=== PATIENT | female | born 1985 | race Hispanic/Latino ===

== ENCOUNTER 2018-01-20 18:04 | Emergency (ER) | payer SELFPAY ==
[2018-01-20 19:02] VITALS: BP 110/77
[2018-01-20 19:16] LABS: Basophils # (Auto) 0.1 K/mm3 (0.0-0.1); Basophils % (Auto) 0.5 % (0.0-1.8); Eosinophils # (Auto) 0.2 K/mm3 (0.0-0.4); Eosinophils % (Auto) 1.7 % (0.0-4.3); Hematocrit 40.4 % (30.3-42.9); Hemoglobin 13.6 gm/dl (10.1-14.3); Lymphocytes # (Auto) 1.8 K/mm3 (1.2-5.4); Lymphocytes % (Auto) 15.9 % (13.4-35.0); Mean Corpuscular HGB Conc 34 % (30-34); Mean Corpuscular Hemoglobin 31 pg (28-32); Mean Corpuscular Volume 92 fl (79-97); Monocytes # (Auto) 0.9 K/mm3 (0.0-0.8); Platelet Count 222 K/mm3 (140-440); Red Cell Distribution Width 14.3 % (13.2-15.2)
[2018-01-20 19:38] LABS: Alanine Aminotransferase 8 units/L (7-56); Albumin 4.2 g/dL (3.9-5); BUN/Creatinine Ratio 14; Blood Urea Nitrogen 10 mg/dL (7-17); Calcium 9.5 mg/dL (8.4-10.2); Hemolysis Index 4
[2018-01-20 19:42] LABS: Bacteria,Urine 2+ /HPF (Negative); Bilirubin,Urine NEG (Negative); Blood,Urine SM (Negative); Color,Urine Yellow (Yellow); Mucus,Urine FEW /HPF; Urobilinogen,Urine < 2.0 mg/dL (<2.0)
[2018-01-20 19:44] LABS: HCG Qualitative,Urine Negative (Negative)
== END 2018-01-20 19:58 | disposition left against medical advice (07) ==
LOC: ED 18:04
DX: M54.5 Low back pain (principal); Z53.21 Procedure and treatment not carried out due to patient leaving prior to being seen by health care provider
CPT/HCPCS: 36415; 80053; 81001; 81025; 85025; 87086

== ENCOUNTER 2018-09-16 14:27 | Emergency (ER) | payer OTHER ==
--- NOTE | 2018-09-16 14:58 | Emergency Department Report ---
Chief Complaint: Abdominal Pain Stated Complaint: ABD PAIN/BACK PAIN/FATIGUE Time Seen by Provider: 09/16/18 14:55 - HPI History of Present Illness: This is a 32 y.o. female that presents to ER with abdominal pain, chills, fatigue, and vomiting x 2 days. - ROS Review of Systems: pelvic pain - Exam Vital Signs: Vital Signs 09/16/18 14:56 Temperature 99.1 F Pulse Rate 89 Respiratory 20 Rate Blood Pressure 116/77 O2 Sat by Pulse 96 Oximetry MSE screening note: Focused history and physical exam performed. Due to findings the following was ordered: Labs Fast track for further evaluation ED Disposition for MSE Condition: Stable Instructions: Abdominal Pain (ED)
[2018-09-16 15:29] LABS: Bacteria,Urine 1+ /HPF (Negative); Bilirubin,Urine NEG (Negative); Blood,Urine SM (Negative); Color,Urine Amber (Yellow); Mucus,Urine FEW /HPF
[2018-09-16 15:30] LABS: Basophils # (Auto) 0.1 K/mm3 (0.0-0.1); Basophils % (Auto) 0.6 % (0.0-1.8); Eosinophils # (Auto) 0.1 K/mm3 (0.0-0.4); Eosinophils % (Auto) 0.5 % (0.0-4.3); Hematocrit 40.6 % (30.3-42.9); Hemoglobin 13.8 gm/dl (10.1-14.3); Lymphocytes # (Auto) 1.7 K/mm3 (1.2-5.4); Lymphocytes % (Auto) 10.6 % (13.4-35.0); Mean Corpuscular HGB Conc 34 % (30-34); Mean Corpuscular Volume 92 fl (79-97); Monocytes # (Auto) 1.1 K/mm3 (0.0-0.8); Monocytes % (Auto) 7.1 % (0.0-7.3); Platelet Count 293 K/mm3 (140-440); Red Cell Distribution Width 13.8 % (13.2-15.2)
[2018-09-16 15:33] LABS: Protein,Urine >500 mg/dL (Negative)
[2018-09-16 16:02] LABS: Alanine Aminotransferase 12 units/L (7-56); Albumin 4.4 g/dL (3.9-5); BUN/Creatinine Ratio 11; Blood Urea Nitrogen 8 mg/dL (7-17); Calcium 9.1 mg/dL (8.4-10.2); Hemolysis Index 3
--- NOTE | 2018-09-16 16:31 | Emergency Department Report ---
ED Dysuria HPI - HPI Chief Complaint: Abdominal Pain Stated Complaint: ABD PAIN/BACK PAIN/FATIGUE Time Seen by Provider: 09/16/18 14:55 Duration: 3 Days Location of Discomfort: Suprapubic Severity: Mild Symptoms: Dysuria: Yes, Frequency: No, Suprapubic Pain: No, Flank Pain: No, Fever: No, Hematuria: No, Abdominal Pain: No, Previous UTI's: No Other History: Patient is a 32-year-old female that comes to the emergency room complaining of lower abdominal pain that worsened during intercourse. She has 2 sexual partners. She vomited once since Saturday. Patient reports that she has dark brown vaginal discharge. Patient's last menstrual period was 09/07/2018. Patient denies fever. Patient endorses chills. She is ambulatory without difficulty. rx. none. pmh. none ED Review of Systems ROS: Stated complaint: ABD PAIN/BACK PAIN/FATIGUE Other details as noted in HPI Comment: All other systems reviewed and negative Constitutional: see HPI, chills Eyes: denies: eye pain ENT: denies: ear pain Respiratory: denies: cough Cardiovascular: denies: chest pain Endocrine: denies: flushing Gastrointestinal: as per HPI, abdominal pain, vomiting. denies: nausea, diarrhea, constipation Genitourinary: as per HPI, dysuria, hematuria, discharge, abnormal menses. denies: urgency, frequency Musculoskeletal: denies: as per HPI, back pain Skin: denies: rash Neurological: denies: headache Psychiatric: denies: anxiety Hematological/Lymphatic: denies: easy bleeding ED Past Medical Hx - Past Medical History Previous Medical History?: No Hx Hypertension: No Hx Diabetes: No Hx Deep Vein Thrombosis: No Hx Renal Disease: No Hx Sickle Cell Disease: No Hx Seizures: No Hx Asthma: No Hx HIV: No - Surgical History Past Surgical History?: Yes Additional Surgical History: 2013, 2012, 2007 - Family History Family history: no significant - Social History Smoking Status: Current Every Day Smoker Substance Use Type: Alcohol - Medications Home Medications: Home Medications Medication Instructions Recorded Confirmed Last Taken Type Fluconazole [Diflucan TAB] 100 mg PO QDAY #2 tablet 09/16/18 Unknown Rx metroNIDAZOLE [Flagyl] 500 mg PO Q12HR #20 tab 09/16/18 Unknown Rx Dysuria Exam - Exam General: Vital signs noted. No distress. Alert and acting appropriately. Exam: Yes Moist Mucous Membranes, No CVA Tenderness, No Abdominal Tenderness, No Rigidity or Guarding Labs: Lab Results 09/16/18 09/16/18 09/16/18 Range/Units 15:08 15:19 15:19 WBC 16.0 H (4.5-11.0) K/mm3 RBC 4.40 (3.65-5.03) M/mm3 Hgb 13.8 (10.1-14.3) gm/dl Hct 40.6 (30.3-42.9) % MCV 92 (79-97) fl MCH 31 (28-32) pg MCHC 34 (30-34) % RDW 13.8 (13.2-15.2) % Plt Count 293 (140-440) K/mm3 Lymph % (Auto) 10.6 L (13.4-35.0) % Martin % (Auto) 7.1 (0.0-7.3) % Eos % (Auto) 0.5 (0.0-4.3) % Baso % (Auto) 0.6 (0.0-1.8) % Lymph # 1.7 (1.2-5.4) K/mm3 Martin # 1.1 H (0.0-0.8) K/mm3 Eos # 0.1 (0.0-0.4) K/mm3 Baso # 0.1 (0.0-0.1) K/mm3 Seg Neutrophils % 81.2 H (40.0-70.0) % Seg Neutrophils # 13.0 H (1.8-7.7) K/mm3 Sodium 136 L (137-145) mmol/L Potassium 4.0 (3.6-5.0) mmol/L Chloride 96.0 L (98-107) mmol/L Carbon Dioxide 28 (22-30) mmol/L Anion Gap 16 mmol/L BUN 8 (7-17) mg/dL Creatinine 0.7 (0.7-1.2) mg/dL Estimated GFR > 60 ml/min BUN/Creatinine Ratio 11 % Glucose 97 (65-100) mg/dL Calcium 9.1 (8.4-10.2) mg/dL Total Bilirubin 1.10 (0.1-1.2) mg/dL AST 18 (5-40) units/L ALT 12 (7-56) units/L Alkaline Phosphatase 57 (35-129) units/L Total Protein 8.0 (6.3-8.2) g/dL Albumin 4.4 (3.9-5) g/dL Albumin/Globulin Ratio 1.2 % HCG, Qual (Negative) Urine Color Angela (Yellow) Urine Turbidity Slightly-cloudy (Clear) Urine pH 8.0 H (5.0-7.0) Ur Specific [place] 1.031 H (1.003-1.030) Urine Protein >500 (Negative) mg/dL Urine Glucose (UA) Neg (Negative) mg/dL Urine Ketones Neg (Negative) mg/dL Urine Blood Sm (Negative) Urine Nitrite Neg (Negative) Urine Bilirubin Neg (Negative) Urine Urobilinogen 4.0 (<2.0) mg/dL Ur Leukocyte Esterase Lg (Negative) Urine WBC (Auto) 71.0 H (0.0-6.0) /HPF Urine RBC (Auto) 31.0 (0.0-6.0) /HPF U Epithel Cells (Auto) 15.0 H (0-13.0) /HPF Urine Bacteria (Auto) 1+ (Negative) /HPF Urine Mucus Few /HPF 03// Range/Units 15:19 WBC (4.5-11.0) K/mm3 RBC (3.65-5.03) M/mm3 Hgb (10.1-14.3) gm/dl Hct (30.3-42.9) % MCV (79-97) fl MCH (28-32) pg MCHC (30-34) % RDW (13.2-15.2) % Plt Count (140-440) K/mm3 Lymph % (Auto) (13.4-35.0) % Martin % (Auto) (0.0-7.3) % Eos % (Auto) (0.0-4.3) % Baso % (Auto) (0.0-1.8) % Lymph # (1.2-5.4) K/mm3 Martin # (0.0-0.8) K/mm3 Eos # (0.0-0.4) K/mm3 Baso # (0.0-0.1) K/mm3 Seg Neutrophils % (40.0-70.0) % Seg Neutrophils # (1.8-7.7) K/mm3 Sodium (137-145) mmol/L Potassium (3.6-5.0) mmol/L Chloride (98-107) mmol/L Carbon Dioxide (22-30) mmol/L Anion Gap mmol/L BUN (7-17) mg/dL Creatinine (0.7-1.2) mg/dL Estimated GFR ml/min BUN/Creatinine Ratio % Glucose (65-100) mg/dL Calcium (8.4-10.2) mg/dL Total Bilirubin (0.1-1.2) mg/dL AST (5-40) units/L ALT (7-56) units/L Alkaline Phosphatase (35-129) units/L Total Protein (6.3-8.2) g/dL Albumin (3.9-5) g/dL Albumin/Globulin Ratio % HCG, Qual Negative (Negative) Urine Color (Yellow) Urine Turbidity (Clear) Urine pH (5.0-7.0) Ur Specific [place] (1.003-1.030) Urine Protein (Negative) mg/dL Urine Glucose (UA) (Negative) mg/dL Urine Ketones (Negative) mg/dL Urine Blood (Negative) Urine Nitrite (Negative) Urine Bilirubin (Negative) Urine Urobilinogen (<2.0) mg/dL Ur Leukocyte Esterase (Negative) Urine WBC (Auto) (0.0-6.0) /HPF Urine RBC (Auto) (0.0-6.0) /HPF U Epithel Cells (Auto) (0-13.0) /HPF Urine Bacteria (Auto) (Negative) /HPF Urine Mucus /HPF ED Course Vital Signs 09/16/18 14:56 Temperature 99.1 F Pulse Rate 89 Respiratory 20 Rate Blood Pressure 116/77 O2 Sat by Pulse 96 Oximetry ED Medical Decision Making - Lab Data Result diagrams: 09/16/18 15:19 09/16/18 15:19 - Medical Decision Making Labs 09/16/18 09/16/18 09/16/18 15:08 15: 15:19 WBC 16.0 H RBC 4.40 Hgb 13.8 Hct 40.6 MCV 92 MCH 31 MCHC 34 RDW 13.8 Plt Count 293 Lymph % (Auto) 10.6 L Martin % (Auto) 7.1 Eos % (Auto) 0.5 Baso % (Auto) 0.6 Lymph # 1.7 Martin # 1.1 H Eos # 0.1 Baso # 0.1 Seg Neutrophils % 81.2 H Seg Neutrophils # 13.0 H Sodium 136 L Potassium 4.0 Chloride 96.0 L Carbon Dioxide 28 Anion Gap 16 BUN 8 Creatinine 0.7 Estimated GFR > 60 BUN/Creatinine Ratio 11 Glucose 97 Calcium 9.1 Total Bilirubin 1.10 AST 18 ALT 12 Alkaline Phosphatase 57 Total Protein 8.0 Albumin 4.4 Albumin/Globulin Ratio 1.2 HCG, Qual Urine Color Angela Urine Turbidity Slightly-cloudy Urine pH 8.0 H Ur Specific [place] 1.031 H Urine Protein >500 Urine Glucose (UA) Neg Urine Ketones Neg Urine Blood Sm Urine Nitrite Neg Urine Bilirubin Neg Urine Urobilinogen 4.0 Ur Leukocyte Esterase Lg Urine WBC (Auto) 71.0 H Urine RBC (Auto) 31.0 U Epithel Cells (Auto) 15.0 H Urine Bacteria (Auto) 1+ Urine Mucus Few 09/16/18 15:19 WBC RBC Hgb Hct MCV MCH MCHC RDW Plt Count Lymph % (Auto) Martin % (Auto) Eos % (Auto) Baso % (Auto) Lymph # Martin # Eos # Baso # Seg Neutrophils % Seg Neutrophils # Sodium Potassium Chloride Carbon Dioxide Anion Gap BUN Creatinine Estimated GFR BUN/Creatinine Ratio Glucose Calcium Total Bilirubin AST ALT Alkaline Phosphatase Total Protein Albumin Albumin/Globulin Ratio HCG, Qual Negative Urine Color Urine Turbidity Urine pH Ur Specific [place] Urine Protein Urine Glucose (UA) Urine Ketones Urine Blood Urine Nitrite Urine Bilirubin Urine Urobilinogen Ur Leukocyte Esterase Urine WBC (Auto) Urine RBC (Auto) U Epithel Cells (Auto) Urine Bacteria (Auto) Urine Mucus Vital Signs 09/16/18 14:56 Temperature 99.1 F Pulse Rate 89 Respiratory 20 Rate Blood Pressure 116/77 O2 Sat by Pulse 96 Oximetry wet prep noted will treat with azithro pt is allergic to keflex- will not give rocephin, need to call her back should gonn. culture be positive will dc home on flagyl and diflucan Critical care attestation.: If time is entered above; I have spent that time in minutes in the direct care of this critically ill patient, excluding procedure time. ED Disposition Clinical Impression: Bacterial vaginosis Disposition: DC-01 TO HOME OR SELFCARE Is pt being admited?: No Does the pt Need Aspirin: No Condition: Stable Instructions: Bacterial Vaginosis (ED) Additional Instructions: MED ORDERED today safe sex HYDRATE WELL WITH WATER MOTRIN OR TYLENOL FOR PAIN OR FEVER DIET TOLERATED ACTIVITY TOLERATED FOLLOW UP obgyn to be sure you are getting better referral below you have additional cultures pending here in ER make sure we have the proper phone number Referrals: JIMMY SCHERERFRISCO MD TROY [Primary Care Provider] - 3-5 Days HANY PAZ MD [Staff Physician] - 3-5 Days Forms: STI Treatment and Prevention Time of Disposition: 17:19
[2018-09-16] MEDS ORDERED: PERCOCET 5/325 PO PRN (16:40)
[2018-09-16] MEDS ORDERED: NACL 0.9% 1000 ML 1,000 ML IV ONE (16:40)
[2018-09-16] MEDS ORDERED: ZITHROMAX PO ONE (17:13)
[2018-09-16 18:36] VITALS: BP 115/67
== END 2018-09-16 18:29 | disposition home or self-care (01) ==
LOC: ED 14:27
DX: N76.0 Acute vaginitis (principal); B96.89 Other specified bacterial agents as the cause of diseases classified elsewhere; F17.200 Nicotine dependence, unspecified, uncomplicated; Z88.8 Allergy status to other drugs, medicaments and biological substances
CPT/HCPCS: 36415; 80053; 81001; 84703; 85025; 87210; 87591; 96360; 99284; J7030

== ENCOUNTER 2019-02-05 12:12 | Emergency (ER) | payer SELFPAY ==
--- NOTE | 2019-02-05 12:19 | Emergency Department Report ---
Blank Doc - Documentation Documentation: This is a 33-year-old female that presents with dysuria and vaginal discharge. Also has toothache. This initial assessment/diagnostic orders/clinical plan/treatment(s) is/are subject to change based on patient's health status, clinical progression and re- assessment by fellow clinical providers in the ED. Further treatment and workup at subsequent clinical providers discretion. Patient/guardians urged not to elope from the ED as their condition may be serious if not clinically assessed and managed. Initial orders include: 1- Patient sent to [facility] for further evaluation and treatment 2- UA 3- wet prep/GC
--- NOTE | 2019-02-05 14:10 | Emergency Department Report ---
ED General Adult HPI - General Chief complaint: Dental/Oral Stated complaint: TOOTHACHE/POSS UTI Time Seen by Provider: 02/05/19 12:18 Source: patient Mode of arrival: Ambulatory Limitations: No Limitations - History of Present Illness Initial comments: This is a 33-year-old female presents ED complaining of right-sided lower dental pain for the past 2 weeks. Patient states that she has not been to see a dentist for some time now. Patient states pain is localized to the left lower tendon toe region. Patient states that pain is radiated toward his left ear. Patient denies any trauma falls or injuries. Patient also complains of experiencing urinary frequency and urgency. Patient states she thinks she may have a UTI. She left pain, fever, nausea vomiting - Related Data Previous Rx's Medication Instructions Recorded Last Taken Type Fluconazole [Diflucan TAB] 100 mg PO QDAY #2 tablet 09/16/18 Unknown Rx metroNIDAZOLE [Flagyl] 500 mg PO Q12HR #20 tab 09/16/18 Unknown Rx Clindamycin [Clindamycin CAP] 300 mg PO Q8H #21 cap 02/05/19 Unknown Rx Ibuprofen [Motrin] 800 mg PO Q8HR #30 tablet 02/05/19 Unknown Rx Allergies Allergy/AdvReac Type Severity Reaction Status Date / Time cephalexin monohydrate AdvReac Intermediate Hives Verified 02/05/19 12:15 [From Keflex] ED Review of Systems ROS: Stated complaint: TOOTHACHE/POSS UTI Other details as noted in HPI Comment: All other systems reviewed and negative ED Past Medical Hx - Past Medical History Hx Hypertension: No Hx Diabetes: No Hx Deep Vein Thrombosis: No Hx Renal Disease: No Hx Sickle Cell Disease: No Hx Seizures: No Hx Asthma: No Hx HIV: No - Surgical History Additional Surgical History: 2013, 2012, 2007 - Social History Smoking Status: Current Every Day Smoker Substance Use Type: None - Medications Home Medications: Home Medications Medication Instructions Recorded Confirmed Last Taken Type Fluconazole [Diflucan TAB] 100 mg PO QDAY #2 tablet 09/16/18 Unknown Rx metroNIDAZOLE [Flagyl] 500 mg PO Q12HR #20 tab 09/16/18 Unknown Rx Clindamycin [Clindamycin CAP] 300 mg PO Q8H #21 cap 02/05/19 Unknown Rx Ibuprofen [Motrin] 800 mg PO Q8HR #30 tablet 02/05/19 Unknown Rx ED Physical Exam - General Limitations: No Limitations General appearance: alert, in no apparent distress - Head Head exam: Present: atraumatic, normocephalic - Eye Eye exam: Present: normal appearance - ENT ENT exam: Present: mucous membranes moist - Expanded ENT Exam Expanded Mouth exam: Present: normal external inspection Teeth exam: Present: dental caries (29), dental tenderness # (29). Absent: gingival enlargement Throat exam: Positive: normal inspection. Negative: tonsillar erythema, tonsillar exudate - Neck Neck exam: Present: normal inspection - Respiratory Respiratory exam: Present: normal lung sounds bilaterally. Absent: respiratory distress - Cardiovascular Cardiovascular Exam: Present: regular rate, normal rhythm. Absent: systolic murmur, diastolic murmur, rubs, gallop - GI/Abdominal GI/Abdominal exam: Present: soft, normal bowel sounds - Extremities Exam Extremities exam: Present: normal inspection, full ROM - Back Exam Back exam: Present: normal inspection - Neurological Exam Neurological exam: Present: alert, oriented X3 - Psychiatric Psychiatric exam: Present: normal affect, normal mood - Skin Skin exam: Present: warm, dry, intact, normal color. Absent: rash ED Course Vital Signs 02/05/19 02/05/19 12:18 16:28 Temperature 98.0 F 98.2 F Pulse Rate 91 H 80 Respiratory 16 15 Rate Blood Pressure 149/89 Blood Pressure 135/77 [Left] O2 Sat by Pulse 96 98 Oximetry ED Medical Decision Making - Medical Decision Making 33-year-old female who presents with right lower Facial pain secondary to odontogenic caries ED course: Odontogenic infection versus ear infection. Based upon history and physical examination, pain is a result of an infection of tooth number 29 and that the pain Pt feels on the right side of his face and towards the ear is referred pain from this infectious process. Pt has no evidence of acute impending airway compromise. At this point, patient will be discharged home on some antibiotics and pain trial, she will do well with an outpatient course of antibiotics. Follow up with the Dental Clinic as referred Vital signs are normal patient is in no acute distress. Pt had an effect uneventful ED stay Urinalysis completed urinalysis shows signs of mild cystitis. Patient was sensitive on antibiotics which will cover the UTI. Critical care attestation.: If time is entered above; I have spent that time in minutes in the direct care of this critically ill patient, excluding procedure time. ED Disposition Clinical Impression: Pain due to dental caries Disposition: DC TO HOME OR SELFCARE Is pt being admited?: No Does the pt Need Aspirin: No Condition: Stable Instructions: Dental Caries (ED), Toothache (ED) Additional Instructions: Make sure to follow up with the primary care physician as discussed. Take all your medications as you've been prescribed. If you have any worsening symptoms or develop new symptoms please return to ED immediately. Prescriptions: Clindamycin [Clindamycin CAP] 300 mg PO Q8H #21 cap Ibuprofen [Motrin] 800 mg PO Q8HR #30 tablet Referrals: CONNIE CUI MD [Primary Care Provider] - 3-5 Days [facility] [Outside] - 3-5 Days [facility] [Outside] - 3-5 Days [facility] [Outside] - 3-[address] [facility] [Outside] - 3-5 Days Forms: Work/School Release Form(ED) Time of Disposition: 14:13
[2019-02-05 14:30] LABS: Bilirubin,Urine NEG (Negative); Blood,Urine SM (Negative); Color,Urine Yellow (Yellow); Mucus,Urine 2+ /HPF; Urobilinogen,Urine < 2.0 mg/dL (<2.0)
[2019-02-05 14:32] LABS: HCG Qualitative,Urine Negative (Negative)
[2019-02-05 16:29] VITALS: BP 135/77
== END 2019-02-05 15:00 | disposition home or self-care (01) ==
LOC: ED 12:12
DX: K02.9 Dental caries, unspecified (principal); F17.200 Nicotine dependence, unspecified, uncomplicated; Z88.8 Allergy status to other drugs, medicaments and biological substances; Z79.1 Long term (current) use of non-steroidal anti-inflammatories (NSAID)
CPT/HCPCS: 81001; 81025; 87076; 87086; 87186; 99284

== ENCOUNTER 2019-08-25 15:35 | Emergency (ER) | payer SELFPAY ==
[2019-08-25 19:11] VITALS: BP 106/69
[2019-08-25 20:49] LABS: Bilirubin,Urine NEG (Negative); Blood,Urine LG (Negative); Color,Urine Red (Yellow); HCG Qualitative,Urine Negative (Negative); Mucus,Urine 1+ /HPF; Urobilinogen,Urine < 2.0 mg/dL (<2.0)
[2019-08-25 20:50] LABS: RBC,Urine > 182.0 /HPF (0.0-6.0); WBC,Urine > 182.0 /HPF (0.0-6.0)
[2019-08-25] MEDS ORDERED: KETOROLAC 30 MG/1 ML INJ IV ONE (22:47)
[2019-08-25] MEDS ORDERED: SODIUM CHLORIDE 0.9% 1000 ML 1,000 ML IV ONE (22:47)
--- NOTE | 2019-08-25 22:56 | Emergency Department Report ---
ED Abdominal Pain HPI - General Chief Complaint: Urogenital-Female Stated Complaint: LOWER BACK PAIN, CHILLS Time Seen by Provider: 08/25/19 22:03 Source: patient Mode of arrival: Ambulatory Limitations: No Limitations - History of Present Illness Initial Comments: Ms. Hopson is a 33-year-old white female who presents for right flank pain radiating to suprapubic. Symptoms have been for the last week. Symptoms include dysuria frequency and urgency. Patient denies hematuria however there is flank pain that is increased with urination. She does endorse generalized malaise. No fever noted in triage today. There is mild tachycardia. Symptoms are relieved by nothing tried. Patient denies vaginal discharge states no concern for STI. MD Complaint: flank pain Onset/Timin -: week(s) Location: R flank Radiation: suprapubic Migration to: suprapubic Severity: moderate Severity scale (0 -10): 5 Quality: aching, sharp Consistency: constant Improves With: nothing Worsens With: nothing Associated Symptoms: nausea, chills, dysuria. denies: vomiting, diarrhea, fever, constipation, melena - Related Data LMP Date: 08/17/19 Previous Rx's Medication Instructions Recorded Last Taken Type Fluconazole [Diflucan TAB] 100 mg PO QDAY #2 tablet 09/16/18 Unknown Rx metroNIDAZOLE [Flagyl] 500 mg PO Q12HR #20 tab 09/16/18 Unknown Rx Clindamycin [Clindamycin CAP] 300 mg PO Q8H #21 cap 02/05/19 Unknown Rx Ibuprofen [Motrin] 800 mg PO Q8HR #30 tablet 02/05/19 Unknown Rx Ciprofloxacin HCl [Ciprofloxacin 500 mg PO BID 10 Days #20 tab 08/26/19 Unknown Rx TAB] Ibuprofen [Motrin 800 MG tab] 800 mg PO Q8HR PRN #30 tablet 08/26/19 Unknown Rx Allergies Allergy/AdvReac Type Severity Reaction Status Date / Time cephalexin monohydrate AdvReac Intermediate Hives Verified 02/05/19 12:15 [From Keflex] ED Review of Systems ROS: Stated complaint: LOWER BACK PAIN, CHILLS Other details as noted in HPI Constitutional: denies: chills, fever Eyes: denies: eye pain, eye discharge, vision change ENT: denies: ear pain, throat pain Respiratory: no symptoms reported Cardiovascular: denies: chest pain, palpitations Endocrine: no symptoms reported Gastrointestinal: abdominal pain, nausea, vomiting. denies: diarrhea, constipation, melena Genitourinary: as per HPI, urgency, dysuria, frequency. denies: hematuria, discharge, dyspareunia Musculoskeletal: back pain (left flank). denies: joint swelling, arthralgia Skin: denies: rash, lesions Neurological: denies: headache, weakness, paresthesias Psychiatric: denies: anxiety, depression Hematological/Lymphatic: denies: easy bleeding, easy bruising ED Past Medical Hx - Past Medical History Previous Medical History?: No Hx Hypertension: No Hx Diabetes: No Hx Deep Vein Thrombosis: No Hx Renal Disease: No Hx Sickle Cell Disease: No Hx Seizures: No Hx Asthma: No Hx HIV: No - Surgical History Past Surgical History?: Yes Additional Surgical History: 2013, 2012, 2007 - Social History Smoking Status: Current Every Day Smoker Substance Use Type: None - Medications Home Medications: Home Medications Medication Instructions Recorded Confirmed Last Taken Type Fluconazole [Diflucan TAB] 100 mg PO QDAY #2 tablet 09/16/18 Unknown Rx metroNIDAZOLE [Flagyl] 500 mg PO Q12HR #20 tab 09/16/18 Unknown Rx Clindamycin [Clindamycin CAP] 300 mg PO Q8H #21 cap 02/05/19 Unknown Rx Ibuprofen [Motrin] 800 mg PO Q8HR #30 tablet 02/05/19 Unknown Rx Ciprofloxacin HCl [Ciprofloxacin 500 mg PO BID 10 Days #20 tab 08/26/19 Unknown Rx TAB] Ibuprofen [Motrin 800 MG tab] 800 mg PO Q8HR PRN #30 tablet 08/26/19 Unknown Rx ED Physical Exam - General Limitations: No Limitations General appearance: alert, in no apparent distress - Head Head exam: Present: atraumatic, normocephalic - Eye Eye exam: Present: normal appearance, PERRL Pupils: Present: normal accommodation - ENT ENT exam: Present: mucous membranes moist - Neck Neck exam: Present: normal inspection, full ROM. Absent: tenderness - Respiratory Respiratory exam: Present: normal lung sounds bilaterally. Absent: respiratory distress, wheezes, stridor, chest wall tenderness - Cardiovascular Cardiovascular Exam: Present: regular rate, normal rhythm, normal heart sounds. Absent: systolic murmur, diastolic murmur, rubs, gallop - GI/Abdominal GI/Abdominal exam: Present: soft, tenderness (right flank ), normal bowel sounds. Absent: distended, guarding, rebound, rigid, bruit, hernia - Rectal Rectal exam: Present: deferred - Extremities Exam Extremities exam: Present: normal inspection, full ROM. Absent: tenderness - Back Exam Back exam: Present: normal inspection, full ROM, CVA tenderness (L). Absent: tenderness, CVA tenderness (R), vertebral tenderness, rash noted - Neurological Exam Neurological exam: Present: alert, oriented X3, CN II-XII intact, normal gait, reflexes normal. Absent: motor sensory deficit - Psychiatric Psychiatric exam: Present: normal affect, normal mood - Skin Skin exam: Present: warm, dry, intact, normal color. Absent: rash ED Course Vital Signs 08/25/19 19:09 Temperature 98.7 F Pulse Rate 103 H Respiratory 18 Rate Blood Pressure 106/69 O2 Sat by Pulse 95 Oximetry ED Medical Decision Making - Lab Data Labs 08/25/19 Unknown Urine Color Red Urine Turbidity Turbid Urine pH 6.0 Ur Specific [place] 1.021 Urine Protein 100 mg/dl Urine Glucose (UA) Neg Urine Ketones Tr Urine Blood Lg Urine Nitrite Neg Urine Bilirubin Neg Urine Ictotest Not Reportable Urine Urobilinogen < 2.0 Ur Leukocyte Esterase Mod Urine WBC (Auto) > 182.0 H Urine RBC (Auto) > 182.0 U Epithel Cells (Auto) 5.0 Urine WBC Clumps 3+ Urine Mucus 1+ Urine HCG, Qual Negative - Radiology Data Radiology results: report reviewed, image reviewed Findings Reporting MD: Kj Hollis Dictation Time: August 25, 2019 22:24 Drafter Detail: Not available Powder Guard Date: CT ABDOMEN AND PELVIS WITHOUT IV CONTRAST INDICATION: flank pain. COMPARISON: None available. TECHNIQUE: All CT scans at this facility use dose modulation, automated exposure control, iterative reconstruction or weight based dosing, when appropriate, to reduce radiation dose to as low as reasonably achievable. FINDINGS: Lung Bases: No significant abnormality. Skeletal System: No acute abnormality. ABDOMEN: Liver: No significant abnormality. Gallbladder: There are couple punctate gallstones. The gallbladder is otherwise unremarkable. Bile Ducts: No significant abnormality. Pancreas: No significant abnormality. Spleen: No significant abnormality. Adrenals: No significant abnormality. Right Kidney: No significant abnormality. Left Kidney: There is subtle asymmetric left perinephric stranding. Upper GI tract: Small hiatal hernia. Otherwise unremarkable. Lymph Nodes: No significant adenopathy. Aorta: No significant abnormality. Additional Findings: No significant abnormality. PELVIS: Colon: No acute abnormality. Urinary Bladder and Distal Ureters: There is mild perivesical stranding. Appendix: No significant abnormality. Lymph Nodes: No significant adenopathy. Additional Findings: Trace free fluid may be physiologic. IMPRESSION: 1. Probable cystitis. Mild asymmetric left perinephric stranding is concerning for left pyelonephritis. No hydronephrosis. 2. Incidental findings, as above. - Medical Decision Making CT scan scan consistent with pyelonephritis left. Patient treated with Rocephin IV piggyback in ED and Toradol states that symptoms are improved to 2/10 at this point she is tolerating p.o. intake without nausea or vomiting there is no fever chills patient with no acute distress. Patient will be DC'd home in stable condition with prescription for Cipro ibuprofen. She will continue to hydrate and follow-up with PCP in 2 to 3 days. Patient verbalizes agreement and understanding with discharge plan. Patient DC'd home in stable condition at this time. Critical care attestation.: If time is entered above; I have spent that time in minutes in the direct care of this critically ill patient, excluding procedure time. ED Disposition Clinical Impression: UTI (urinary tract infection) Qualifiers: Urinary tract infection type: acute cystitis Hematuria presence: without hematuria Qualified Code(s): N30.00 - Acute cystitis without hematuria Disposition: DC-01 TO HOME OR SELFCARE Is pt being admited?: No Does the pt Need Aspirin: No Condition: Stable Instructions: Urinary Tract Infection in Women (ED), Flank Pain (ED) Prescriptions: Ciprofloxacin HCl [Ciprofloxacin TAB] 500 mg PO BID 10 Days #20 tab Ibuprofen [Motrin 800 MG tab] 800 mg PO Q8HR PRN #30 tablet PRN Reason: pain and fever Referrals: [facility] [Outside] - 3-5 Days Forms: Work/School Release Form(ED) Time of Disposition: 00:12
--- NOTE | 2019-08-25 23:28 | Cat Scan Report ---
CT ABDOMEN AND PELVIS WITHOUT IV CONTRAST INDICATION: flank pain. COMPARISON: None available. TECHNIQUE: All CT scans at this facility use dose modulation, automated exposure control, iterative reconstructi on or weight based dosing, when appropriate, to reduce radiation dose to as low as reasonably achieva ble. FINDINGS: Lung Bases: No significant abnormality. Skeletal System: No acute abnormality. ABDOMEN: Liver: No significant abnormality. Gallbladder: There are couple punctate gallstones. The gallbladder is otherwise unremarkable. Bile Ducts: No significant abnormality. Pancreas: No significant abnormality. Spleen: No significant abnormality. Adrenals: No significant abnormality. Right Kidney: No significant abnormality. Left Kidney: There is subtle asymmetric left perinephric stranding. Upper GI tract: Small hiatal hernia. Otherwise unremarkable. Lymph Nodes: No significant adenopathy. Aorta: No significant abnormality. Additional Findings: No significant abnormality. PELVIS: Colon: No acute abnormality. Urinary Bladder and Distal Ureters: There is mild perivesical stranding. Appendix: No significant abnormality. Lymph Nodes: No significant adenopathy. Additional Findings: Trace free fluid may be physiologic. IMPRESSION: 1. Probable cystitis. Mild asymmetric left perinephric stranding is concerning for left pyelonephrit is. No hydronephrosis. 2. Incidental findings, as above. Signer Name: Kj Hollis MD Signed: 08/25/2019 11:24 PM Workstation Name: [id number]
== END 2019-08-26 00:25 | disposition home or self-care (01) ==
LOC: ED 15:35
DX: N39.0 Urinary tract infection, site not specified (principal); F17.200 Nicotine dependence, unspecified, uncomplicated; Z98.890 Other specified postprocedural states; Z79.899 Other long term (current) drug therapy; Z88.1 Allergy status to other antibiotic agents
CPT/HCPCS: 74176; 81001; 81025; 96365; 96375; 99284; J1885; J1956; J7030

== ENCOUNTER 2019-08-26 11:02 | Emergency (ER) | payer SELFPAY ==
[2019-08-26 12:08] VITALS: BP 120/80
--- NOTE | 2019-08-26 12:49 | Event Note ---
ED Screening Note Date of service: 08/26/19 Time: 12:18 ED Screening Note: This is a 33 y o female who was evalutaed here yesterday and treated for pyelo who presents to Ed cc of same symptoms She denies fever chills, n,v,d she complains of flank pain and hematuria This initial assessment/diagnostic orders/clinical plan/treatment(s) is/are subject to change based on patients health status, clinical progression and re- assessment by fellow clinical providers in the ED. Further treatment and workup at subsequent clinical providers discretion. Patient/guardian urged not to elope from the ED as their condition may be serious if not clinically assessed and managed. Initial orders include: Pt presents with pyelo but was treated yesterday Examination is normal, Vital sign are stable Discussed to continue taking her meds as prescribed as well as take azo pills over the counter Pt given information for clinics to follow up with pcp for further treatment and evaluation Also discussed strict return precautions in detail with pt who verbalized understanding
== END 2019-08-26 14:00 | disposition left against medical advice (07) ==
LOC: ED 11:02
DX: R50.9 Fever, unspecified (principal); Z53.21 Procedure and treatment not carried out due to patient leaving prior to being seen by health care provider

== ENCOUNTER 2020-04-09 12:02 | Emergency (ER) | payer SELFPAY ==
[2020-04-09 13:18] LABS: Bacteria,Urine 3+ /HPF (Negative); Bilirubin,Urine NEG (Negative); Blood,Urine MOD (Negative); Color,Urine Yellow (Yellow); Mucus,Urine FEW /HPF; Protein,Urine <15 mg/dL mg/dL (Negative); Urobilinogen,Urine < 2.0 mg/dL (<2.0)
[2020-04-09 13:52] LABS: Basophils # (Auto) 0.1 K/mm3 (0.0-0.1); Basophils % (Auto) 0.5 % (0.0-1.8); Eosinophils # (Auto) 0.3 K/mm3 (0.0-0.4); Eosinophils % (Auto) 2.4 % (0.0-4.3); Hematocrit 38.2 % (30.3-42.9); Hemoglobin 12.9 gm/dl (10.1-14.3); Lymphocytes # (Auto) 2.3 K/mm3 (1.2-5.4); Lymphocytes % (Auto) 18.5 % (13.4-35.0); Mean Corpuscular HGB Conc 34 % (30-34); Mean Corpuscular Volume 94 fl (79-97); Monocytes # (Auto) 0.7 K/mm3 (0.0-0.8); Monocytes % (Auto) 5.8 % (0.0-7.3); Platelet Count 271 K/mm3 (140-440); Red Blood Count 4.07 M/mm3 (3.65-5.03); Red Cell Distribution Width 14.6 % (13.2-15.2)
[2020-04-09 14:20] LABS: Alanine Aminotransferase 53 units/L (7-56); Albumin 4.2 g/dL (3.9-5); Blood Urea Nitrogen 10 mg/dL (7-17); Calcium 9.5 mg/dL (8.4-10.2); Hemolysis Index 5
[2020-04-09 14:28] LABS: BUN/Creatinine Ratio 17
--- NOTE | 2020-04-09 15:36 | Emergency Department Report ---
HPI - General Chief Complaint: Abdominal Pain Time Seen by Provider: 04/09/20 15:21 - HPI HPI: Room 30 The patient is a 34-year-old female present with a chief complaint of toothache, URI symptoms and UTI. Patient states she patient is a UTI because for the past 2 days she has noticed low back and lower abdominal pain/cramping in addition to feeling the need to urinate but not urinating. Patient denies dysuria or hematuria. Patient states she is also had a toothache for the past 3 weeks. Patient states recently she developed sore throat nasal congestion sneezing. Patient denies history of fever or contact with known COVID positive patient ED Past Medical Hx - Past Medical History Previous Medical History?: Yes Additional medical history: abd pain - Surgical History Past Surgical History?: Yes Additional Surgical History: 2013, 2012, 2007 - Family History Family history: no significant - Social History Smoking Status: Heavy Tobacco Smoker (2 packs/day) Substance Use Type: None (Denies illicit drug use) - Medications Home Medications: Home Medications Medication Instructions Recorded Confirmed Last Taken Type Ibuprofen [Motrin] 800 mg PO Q8HR PRN #30 tablet 01/05/20 Unknown Rx Sulfamethoxazole/Trimethoprim 1 each PO BID #10 tablet 01/05/20 Unknown Rx [Bactrim DS TAB] Ciprofloxacin HCl [Ciprofloxacin 500 mg PO Q12HR #20 tab 04/09/20 Unknown Rx TAB] traMADoL [Ultram] 50 mg PO Q6HR PRN #14 tablet 04/09/20 Unknown Rx ED Review of Systems ROS: Stated complaint: SEVERE TOOTHACHE/ABD PAIN Other details as noted in HPI Constitutional: denies: fever ENT: throat pain Respiratory: other (Sneezing) Cardiovascular: denies: chest pain Endocrine: no symptoms reported Gastrointestinal: abdominal pain Genitourinary: denies: dysuria, hematuria Musculoskeletal: back pain Physical Exam - Physical Exam Vital Signs: Vital Signs 04/09/20 12:28 Temperature 98.6 F Pulse Rate 81 Respiratory 14 Rate Blood Pressure 141/86 O2 Sat by Pulse 96 Oximetry Physical Exam: GENERAL: The patient is well-developed well-nourished female sitting on chair in no acute distress HEENT: Normocephalic. Atraumatic. Extraocular motions are intact. No gingival hyperplasia or erythema appreciated NECK: Supple. Trachea midline CHEST/LUNGS: Clear to auscultation. There is no respiratory distress noted. HEART/CARDIOVASCULAR: Regular. There is no tachycardia. There is no gallop rub or murmur. ABDOMEN: Abdomen is soft, nontender. Patient has normal bowel sounds. There is no abdominal distention. SKIN: There is no rash. There is no edema. There is no diaphoresis. NEURO: The patient is awake, alert, and oriented. The patient is cooperative. The patient has normal speech MUSCULOSKELETAL: There is no CVA tenderness. There is no evidence of acute injury. ED Course Vital Signs 04/09/20 12:28 Temperature 98.6 F Pulse Rate 81 Respiratory 14 Rate Blood Pressure 141/86 O2 Sat by Pulse 96 Oximetry ED Medical Decision Making - Lab Data Result diagrams: 04/09/20 13:30 04/09/20 13:30 Laboratory Tests 04/09/20 04/09/20 04/09/20 12:49 12:49 13:30 WBC 12.3 H RBC 4.07 Hgb 12.9 Hct 38.2 MCV 94 MCH 32 MCHC 34 RDW 14.6 Plt Count 271 Lymph % (Auto) 18.5 [place] % (Auto) 5.8 Eos % (Auto) 2.4 Baso % (Auto) 0.5 Lymph # (Auto) 2.3 [place] # (Auto) 0.7 Eos # (Auto) 0.3 Baso # (Auto) 0.1 Seg Neutrophils % 72.8 H Seg Neutrophils # 8.9 H Sodium Potassium Chloride Carbon Dioxide Anion Gap BUN Creatinine Estimated GFR BUN/Creatinine Ratio Glucose Calcium Total Bilirubin AST ALT Alkaline Phosphatase Total Protein Albumin Albumin/Globulin Ratio Urine Color Yellow Urine Turbidity Clear Urine pH 5.0 Ur Specific [place] 1.036 H Urine Protein <15 mg/dl Urine Glucose (UA) Neg Urine Ketones Neg Urine Blood Mod Urine Nitrite Neg Urine Bilirubin Neg Urine Urobilinogen < 2.0 Ur Leukocyte Esterase Mod Urine WBC (Auto) 12.0 H Urine RBC (Auto) 32.0 U Epithel Cells (Auto) 8.0 Urine Bacteria (Auto) 3+ Urine Mucus Few Urine HCG, Qual Negative 04/09/20 13:30 WBC RBC Hgb Hct MCV MCH MCHC RDW Plt Count Lymph % (Auto) [place] % (Auto) Eos % (Auto) Baso % (Auto) Lymph # (Auto) [place] # (Auto) Eos # (Auto) Baso # (Auto) Seg Neutrophils % Seg Neutrophils # Sodium 137 Potassium 4.0 Chloride 100.5 Carbon Dioxide 24 Anion Gap 17 BUN 10 Creatinine 0.6 Estimated GFR > 60 BUN/Creatinine Ratio 17 Glucose 106 H Calcium 9.5 Total Bilirubin 0.50 AST 36 ALT 53 Alkaline Phosphatase 80 Total Protein 7.9 Albumin 4.2 Albumin/Globulin Ratio 1.1 Urine Color Urine Turbidity Urine pH Ur Specific [place] Urine Protein Urine Glucose (UA) Urine Ketones Urine Blood Urine Nitrite Urine Bilirubin Urine Urobilinogen Ur Leukocyte Esterase Urine WBC (Auto) Urine RBC (Auto) U Epithel Cells (Auto) Urine Bacteria (Auto) Urine Mucus Urine HCG, Qual - Radiology Data Radiology results: report reviewed (Chest x-ray), image reviewed (Chest x-ray) interpreted by me: Chest x-ray-no focal infiltrates, no pneumothorax, no foreign body seen [facility] [address] [place] [address] XRay Report Signed Patient: LU VITALE MR#: [id number] : 1985 Acct:[id number] Age/Sex: 34 / F ADM Date: 04/09/20 Loc: ED Attending Dr: Ordering Physician: SANDRA CHANCE MD Date of Service: 04/09/20 Procedure(s): XR chest routine 2V Accession Number(s): [id number] cc: SANDRA CHANCE MD Fluoro Time In Minutes: CHEST 2 VIEWS INDICATION / CLINICAL INFORMATION: Cough. COMPARISON: None available. FINDINGS: SUPPORT DEVICES: None. HEART / MEDIASTINUM: No significant abnormality. LUNGS / PLEURA: No significant pulmonary or pleural abnormality. No pneumothorax. ADDITIONAL FINDINGS: No significant additional findings. IMPRESSION: No acute cardiopulmonary abnormality. Signer Name: Sam Arita MD Signed: 04/09/2020 4:21 PM Workstation Name: [id number] Mirza scribed By: SS Dictated By: SAM ARITA Electronically Authenticated By: SAM ARITA Signed Date/Time: 04/09/201620 DD/ 20 TD/TT: - Differential Diagnosis URI, UTI, pneumonia Critical care attestation.: If time is entered above; I have spent that time in minutes in the direct care of this critically ill patient, excluding procedure time. ED Disposition Clinical Impression: UTI (urinary tract infection), URI (upper respiratory infection) Disposition: TO HOME OR SELFCARE Is pt being admited?: No Does the pt Need Aspirin: No Condition: Stable Instructions: Abdominal Pain (ED) Additional Instructions: Return to the emergency department should you develop worsening symptoms, inability to tolerate food or liquids, high fever or any other concerns Prescriptions: Ciprofloxacin HCl [Ciprofloxacin TAB] 500 mg PO Q12HR #20 tab traMADoL [Ultram] 50 mg PO Q6HR PRN #14 tablet PRN Reason: Pain Referrals: PRIMARY CARE,MD [Primary Care Provider] - 3-5 Days [facility] [Outside] - 3-5 Days Time of Disposition: 16:34
[2020-04-09 15:54] LABS: HCG Qualitative,Urine Negative (Negative)
--- NOTE | 2020-04-09 16:26 | XRay Report ---
CHEST 2 VIEWS INDICATION / CLINICAL INFORMATION: Cough. COMPARISON: None available. FINDINGS: SUPPORT DEVICES: None. HEART / MEDIASTINUM: No significant abnormality. LUNGS / PLEURA: No significant pulmonary or pleural abnormality. No pneumothorax. ADDITIONAL FINDINGS: No significant additional findings. IMPRESSION: No acute cardiopulmonary abnormality. Signer Name: Genaro Arita MD Signed: 04/09/2020 4:21 PM Workstation Name: [id number]
[2020-04-09 16:49] VITALS: BP 142/87
== END 2020-04-09 16:47 | disposition home or self-care (01) ==
LOC: ED 12:02
DX: J06.9 Acute upper respiratory infection, unspecified (principal); N39.0 Urinary tract infection, site not specified; F17.210 Nicotine dependence, cigarettes, uncomplicated; Z79.899 Other long term (current) drug therapy; Z98.890 Other specified postprocedural states; Z88.1 Allergy status to other antibiotic agents
CPT/HCPCS: 36415; 71046; 80053; 81001; 81025; 85025; 87086; 99283

== ENCOUNTER 2020-09-11 09:09 | Inpatient (IN) | payer OTHER ==
[2020-09-11] MEDS ORDERED: ASPIRIN 325 MG TAB PO ONE ×2 (09:27→11:09)
--- NOTE | 2020-09-11 09:58 | XRay Report ---
CHEST 2 VIEWS INDICATION / CLINICAL INFORMATION: Chest Pain. COMPARISON: 04/09/2020 FINDINGS: SUPPORT DEVICES: None. HEART / MEDIASTINUM: No significant abnormality. LUNGS / PLEURA: No significant pulmonary or pleural abnormality. No pneumothorax. ADDITIONAL FINDINGS: No significant additional findings. IMPRESSION: 1. No acute findings. Signer Name: Karel Alberto MD Signed: 09/11/2020 9:54 AM Workstation Name: [id number]
[2020-09-11] MEDS ORDERED: fentaNYL 100 MCG/2 ML INJ IV ONE (10:57)
[2020-09-11] MEDS ORDERED: ONDANSETRON 4 MG/2 ML INJ IV ONE (10:57)
--- NOTE | 2020-09-11 11:06 | Emergency Department Report ---
HPI - General Chief Complaint: Chest Pain Time Seen by Provider: 09/11/20 10:50 - HPI HPI: Reason 4 The patient is a 34-year-old female present with a chief complaint of chest pain. Patient states her symptoms began 3 days ago with substernal chest pain described as a tightness associated with shortness of breath and nausea. The patient states his symptoms lasted for approximately 3 hours and then subside. The patient states this morning at 04: 00 the symptoms return with anterior chest tightness has been constant. There is a pleuritic component. The patient denies any recent flights or long car trips. Patient admits to shortness of breath, diaphoresis and nausea without vomiting with her pain. Patient states he is never had a stress test or cardiac catheterization ED Past Medical Hx - Past Medical History Previous Medical History?: Yes Additional medical history: abd pain - Surgical History Past Surgical History?: Yes Additional Surgical History: 2013, 2012, 2007 - Family History Family history: no significant - Social History Smoking Status: Current Every Day Smoker (1 pack/day) Substance Use Type: None (Denies illicit drug use), Alcohol (Rare) - Medications Home Medications: Home Medications Medication Instructions Recorded Confirmed Last Taken Type No Known Home Medications [No 09/11/20 09/11/20 Unknown History Reported Home Medications] ED Review of Systems ROS: Stated complaint: CHEST PAIN, BACK PAIN Other details as noted in HPI Constitutional: diaphoresis Eyes: denies: eye pain ENT: denies: throat pain Respiratory: shortness of breath Cardiovascular: chest pain Endocrine: no symptoms reported Gastrointestinal: nausea. denies: vomiting Genitourinary: denies: dysuria Musculoskeletal: back pain Neurological: denies: headache Physical Exam - Physical Exam Vital Signs: Vital Signs 09/11/20 09/11/20 09/11/20 09:24 10:55 10:56 Temperature 98.3 F Pulse Rate 77 76 Respiratory 24 16 16 Rate Blood Pressure 151/94 Blood Pressure 136/91 [Left] O2 Sat by Pulse 99 100 100 Oximetry Physical Exam: GENERAL: The patient is well-developed well-nourished female lying on stretcher appearing to be in mild discomfort HEENT: Normocephalic. Atraumatic. Extraocular motions are intact. Patient has moist mucous membranes. NECK: Supple. Trachea midline CHEST/LUNGS: Clear to auscultation. There is no respiratory distress noted. HEART/CARDIOVASCULAR: Regular. There is no tachycardia. There is no gallop rub or murmur. ABDOMEN: Abdomen is soft, nontender. Patient has normal bowel sounds. There is no abdominal distention. SKIN: There is no rash. There is no edema. There is no diaphoresis. NEURO: The patient is awake, alert, and oriented. The patient is cooperative. The patient has no focal neurologic deficits. The patient has normal speech MUSCULOSKELETAL: There is no evidence of acute injury. ED Course Vital Signs 09/11/20 09/11/20 09/11/20 09:24 10:55 10:56 Temperature 98.3 F Pulse Rate 77 76 Respiratory 24 16 16 Rate Blood Pressure 151/94 Blood Pressure 136/91 [Left] O2 Sat by Pulse 99 100 100 Oximetry ED Medical Decision Making - Lab Data Result diagrams: 09/11/20 11:17 09/11/20 11:17 - EKG Data -: EKG Interpreted by Me EKG shows normal: sinus rhythm Rate: normal - EKG Data When compared to previous EKG there are: previous EKG unavailable Interpretation: other (No ischemic changes seen) - Radiology Data Radiology results: pending (Right upper quadrant ultrasound), report reviewed (Chest x-ray, CT chest), image reviewed (Chest x-ray, CT chest) interpreted by me: Chest x-ray-no focal infiltrates, no pneumothorax. No foreign body seen CHEST 2 VIEWS INDICATION / CLINICAL INFORMATION: Chest Pain. COMPARISON: 04/09/2020 FINDINGS: SUPPORT DEVICES: None. HEART / MEDIASTINUM: No significant abnormality. LUNGS / PLEURA: No significant pulmonary or pleural abnormality. No pneumothorax. ADDITIONAL FINDINGS: No significant additional findings. IMPRESSION: 1. No acute findings. Signer Name: Karel Alberto MD Signed: 09/11/2020 8:54 AM Workstation Name: [id number] CTA CHEST WITH CONTRAST INDICATION / CLINICAL INFORMATION: Chest pain, shortness of breath. TECHNIQUE: Axial CT images were obtained through the chest after injection of IV contrast. 3 plane MIP and/or 3D reconstructions were produced. All CT scans at this location are performed using CT dose reduction for ALARA by means of automated exposure control. COMPARISON: None available. FINDINGS: PULMONARY ARTERIES: No central or segmental pulmonary embolus. THORACIC AORTA: No significant abnormality. HEART: No significant abnormality. ADENOPATHY: No significant adenopathy. LUNGS/PLEURA: No focal airspace consolidation. No pleural effusion. No pneumothorax. ADDITIONAL FINDINGS: Moder ate hiatal hernia. UPPER ABDOMEN: There is cholelithiasis with distention of the gallbladder and associated wall thickening and surrounding inflammatory stranding. SKELETAL STRUCTURES: No significant osseous abnormality. IMPRESSION: 1. No evidence of pulmonary embolus. 2. Gallbladder distention with cholelithiasis, wall thickening, and surrounding inflammatory stranding, suspicious for cholecystitis. Recommend correlation with right upper quadrant ultrasound. 3. No acute findings of the chest. Signer Name: Remigio Powell MD Signed: 09/11/2020 11:43 AM Workstation Name: [id number] - Differential Diagnosis ACS, PE, pericarditis, GERD Critical care attestation.: If time is entered above; I have spent that time in minutes in the direct care of this critically ill patient, excluding procedure time. ED Disposition Clinical Impression: Acute chest pain Disposition: -09 OP ADMIT IP TO THIS HOSP Is pt being admited?: Yes Does the pt Need Aspirin: Yes Condition: Fair Instructions: Chest Pain (ED) Referrals: PRIMARY CARE, [Primary Care Provider] - 3-5 Days Time of Disposition: 16:06 (Hospitalist notified (Dr. Pandya)) Heart Score - HEART Score History: Moderately suspicious EKG: Normal Age: < 45 Risk factors: No known risk factors Troponin: < normal limit HEART Score: 1
[2020-09-11 11:35] LABS: Basophils # (Auto) 0.1 K/mm3 (0.0-0.1); Basophils % (Auto) 0.6 % (0.0-1.8); Eosinophils # (Auto) 0.5 K/mm3 (0.0-0.4); Eosinophils % (Auto) 2.4 % (0.0-4.3); Hematocrit 34.6 % (30.3-42.9); Hemoglobin 11.9 gm/dl (10.1-14.3); Lymphocytes # (Auto) 2.6 K/mm3 (1.2-5.4); Lymphocytes % (Auto) 13.8 % (13.4-35.0); Mean Corpuscular HGB Conc 34 % (30-34); Mean Corpuscular Volume 93 fl (79-97); Monocytes % (Auto) 5.1 % (0.0-7.3); Platelet Count 296 K/mm3 (140-440); Red Blood Count 3.71 M/mm3 (3.65-5.03); Red Cell Distribution Width 14.6 % (13.2-15.2)
[2020-09-11 11:55] LABS: BUN/Creatinine Ratio 13; Blood Urea Nitrogen 13 mg/dL (7-17); Calcium 9.2 mg/dL (8.4-10.2); Hemolysis Index 8
--- NOTE | 2020-09-11 12:47 | Cat Scan Report ---
CTA CHEST WITH CONTRAST INDICATION / CLINICAL INFORMATION: Chest pain, shortness of breath. TECHNIQUE: Axial CT images were obtained through the chest after injection of IV contrast. 3 plane CA P and/or 3D reconstructions were produced. All CT scans at this location are performed using CT dose reduction for ALARA by means of automated exposure control. COMPARISON: None available. FINDINGS: PULMONARY ARTERIES: No central or segmental pulmonary embolus. THORACIC AORTA: No significant abnormality. HEART: No significant abnormality. ADENOPATHY: No significant adenopathy. LUNGS/PLEURA: No focal airspace consolidation. No pleural effusion. No pneumothorax. ADDITIONAL FINDINGS: Moderate hiatal hernia. UPPER ABDOMEN: There is cholelithiasis with distention of the gallbladder and associated wall thicken ing and surrounding inflammatory stranding. SKELETAL STRUCTURES: No significant osseous abnormality. IMPRESSION: 1. No evidence of pulmonary embolus. 2. Gallbladder distention with cholelithiasis, wall thickening, and surrounding inflammatory strandin g, suspicious for cholecystitis. Recommend correlation with right upper quadrant ultrasound. 3. No acute findings of the chest. Signer Name: Remigio Powell MD Signed: 09/11/2020 12:43 PM Workstation Name: [id number]
[2020-09-11] MEDS ORDERED: fentaNYL 100 MCG/2 ML INJ IV STA (15:02)
[2020-09-11 15:09] LABS: Alanine Aminotransferase 11 units/L (7-56); Albumin 4.2 g/dL (3.9-5)
[2020-09-11 15:10] LABS: Bilirubin,Direct < 0.2 mg/dL (0-0.2)
--- NOTE | 2020-09-11 15:51 | Ultrasound Report ---
LIMITED RUQ ABDOMINAL ULTRASOUND INDICATION / CLINICAL INFORMATION: Abnormal gallbladder on CT. COMPARISON: CTA of the chest from 09/11/2020 FINDINGS: PANCREAS: Visualized portions of the pancreas are within normal limits. ABDOMINAL AORTA: No significant abnormality. IVC: No significant abnormality. LIVER: The liver measures 13.7 cm in length. The liver demonstrates a normal echogenicity and morpho logy. PORTAL VEIN: Normal hepatopedal blood flow in the main portal vein. GALLBLADDER: Gallstones present within the gallbladder neck with gallbladder distention. Gallbladder wall is at the upper limits of normal. Trace pericholecystic fluid. Positive sonographic Navarrete sign. BILE DUCTS: No significant abnormality. Common bile duct measures 3 mm. RIGHT KIDNEY: No significant abnormality visualized. FREE FLUID: None. ADDITIONAL FINDINGS: None. IMPRESSION: Cholelithiasis and a distended gallbladder with borderline gallbladder wall thickening, pericholecyst ic fluid, and positive sonographic Navarrete sign, compatible with acute cholecystitis. Signer Name: Remigio Powell MD Signed: 09/11/2020 3:47 PM Workstation Name: [id number]
--- NOTE | 2020-09-11 18:53 | History and Physical Report ---
History of Present Illness Date of examination: 09/11/20 Date of admission: 09/11/2020 Chief complaint: Chest pain and right upper quadrant discomfort for 3 days History of present illness: 34-year-old female with no significant past medical history comes in for subste rnal chest pain and gastric pain for the last 3 days. Intermittent in nature. No nausea. Patient describes the chest pain is substernal. No cardiac risk factors. Right upper quadrant pain is intermittent. Not clear about the pain. No previous stress test or cardiac cath. No fever or chills. No exposure to coronavirus. - Past Medical History None - Surgical History Past Surgical History?: Yes Additional Surgical History: 2013, 2012, 2007 - Family History Family history: no significant - Social History Smoking Status: Current Every Day Smoker (1 pack/day) Substance Use Type: None (Denies illicit drug use), Alcohol (Rare) - Medications Home Medications: Home Medications Medication Instructions Recorded Confirmed Last Taken Type No Known Home Medications [No 09/11/20 09/11/20 Unknown History Reported Home Medications] Review of Systems ROS: Constitutional no weight loss or weight gain no fever or chills HEENT no sore throat no post nasal drip no diplopia Neck no neck stiffness no lymph gland enlargement Chest and lungs no shortness of breath cough or wheezing CVS substernal chest pain for 3 days GI right upper quadrant pain Genitourinary system no dysuria no flank pain Musculoskeletal system no muscle pains no joint pains [employer] no syncope no seizures Skin no rash no itching Psychiatric no depression no homicidal or suicidal tendencies Hematologic no lymphedema or bruising Endocrine no polydipsia no polyuria no cold intolerance no heat intolerance Medications and Allergies Allergies Allergy/AdvReac Type Severity Reaction Status Date / Time cephalexin monohydrate AdvReac Intermediate Hives Verified 09/11/20 10:54 [From Keflex] Home Medications Medication Instructions Recorded Confirmed Last Taken Type No Known Home Medications [No 09/11/20 09/11/20 Unknown History Reported Home Medications] Exam - Constitutional Vitals: Temp Pulse Resp BP Pulse Ox 98.3 F 86 16 109/74 99 09/11/20 09:24 09/11/20 17:40 09/11/20 17:40 09/11/20 17:40 09/11/20 17:40 General appearance: Present: no acute distress, well-nourished - EENT Eyes: Present: PERRL ENT: hearing intact, clear oral mucosa - Neck Neck: Present: supple, normal ROM - Respiratory Respiratory effort: normal Respiratory: bilateral: CTA - Cardiovascular Heart rate: 78 Rhythm: regular Heart Sounds: Present: S1 & S2. Absent: rub, click - Extremities Extremities: pulses symmetrical, No edema Peripheral Pulses: within normal limits - Abdominal General gastrointestinal: Present: soft, non-tender, non-distended, normal bowel sounds Localized gastrointestinal: tender: diffuse (On deep palpation) Female genitourinary: Present: normal - Rectal Rectal Exam: deferred - Integumentary Integumentary: Present: clear, warm, dry - Musculoskeletal Musculoskeletal: gait normal, strength equal bilaterally - Psychiatric Psychiatric: appropriate mood/affect, intact judgment & insight - Neurologic Neurologic: CNII-XII intact, moves all extremities HEART Score - HEART Score History: Slightly suspicious EKG: Normal Age: < 45 Risk factors: No known risk factors Troponin: Troponin T < 0.010 ng/mL (0.00-0.029) 09/11/20 17:18 Troponin: < normal limit HEART Score: 0 - Critical Actions Critical Actions: 0-3 pts:0.9-1.7%risk of adverse cardiac event.Candidate for discharge Results - Labs CBC & Chem 7: 09/11/20 11:17 09/11/20 11:17 Labs: Laboratory Last Values WBC 18.9 K/mm3 (4.5-11.0) H 09/11/20 11:17 RBC 3.71 M/mm3 (3.65-5.03) 09/11/20 11:17 Hgb 11.9 gm/dl (10.1-14.3) 09/11/20 11:17 Hct 34.6 % (30.3-42.9) 09/11/20 11:17 MCV 93 fl (79-97) 09/11/20 11:17 MCH 32 pg (28-32) 09/11/20 11:17 MCHC 34 % (30-34) 09/11/20 11:17 RDW 14.6 % (13.2-15.2) 09/11/20 11:17 Plt Count 296 K/mm3 (140-440) 09/11/20 11:17 Lymph % (Auto) 13.8 % (13.4-35.0) 09/11/20 11:17 [place] % (Auto) 5.1 % (0.0-7.3) 09/11/20 11:17 Eos % (Auto) 2.4 % (0.0-4.3) 09/11/20 11:17 Baso % (Auto) 0.6 % (0.0-1.8) 09/11/20 11:17 Lymph # (Auto) 2.6 K/mm3 (1.2-5.4) 09/11/20 11:17 [place] # (Auto) 1.0 K/mm3 (0.0-0.8) H 09/11/20 11:17 Eos # (Auto) 0.5 K/mm3 (0.0-0.4) H 09/11/20 11:17 Baso # (Auto) 0.1 K/mm3 (0.0-0.1) 09/11/20 11:17 Seg Neutrophils % 78.1 % (40.0-70.0) H 09/11/20 11:17 Seg Neutrophils # 14.8 K/mm3 (1.8-7.7) H 09/11/20 11:17 D-Dimer 533.07 ng/mlDDU (0-234) H 09/11/20 11:17 Sodium 137 mmol/L (137-145) 09/11/20 11:17 Potassium 3.6 mmol/L (3.6-5.0) 09/11/20 11:17 Chloride 100.9 mmol/L (98-107) 09/11/20 11:17 Carbon Dioxide 26 mmol/L (22-30) 09/11/20 11:17 Anion Gap 14 mmol/L 09/11/20 11:17 BUN 13 mg/dL (7-17) 09/11/20 11:17 Creatinine 1.0 mg/dL (0.6-1.2) 09/11/20 11:17 Estimated GFR > 60 ml/min 09/11/20 11:17 BUN/Creatinine Ratio 13 % 09/11/20 11:17 Glucose 88 mg/dL (65-100) 09/11/20 11:17 Calcium 9.2 mg/dL (8.4-10.2) 09/11/20 11:17 Total Bilirubin < 0.20 mg/dL (0.1-1.2) 09/11/20 11:17 Direct Bilirubin < 0.2 mg/dL (0-0.2) 09/11/20 11:17 Indirect Bilirubin 0.2 mg/dL 09/11/20 11:17 AST 17 units/L (5-40) 09/11/20 11:17 ALT 11 units/L (7-56) 09/11/20 11:17 Alkaline Phosphatase 59 units/L (35-129) 09/11/20 11:17 Troponin T < 0.010 ng/mL (0.00-0.029) 09/11/20 17:18 Total Protein 7.4 g/dL (6.3-8.2) 09/11/20 11:17 Albumin 4.2 g/dL (3.9-5) 09/11/20 11:17 Albumin/Globulin Ratio 1.3 % 09/11/20 11:17 Lipase 3 units/L (13-60) L 09/11/20 11:17 HCG, Qual Negative (Negative) 09/11/20 11:17 Short CBC 09/11/20 Range/Units 11:17 WBC 18.9 H (4.5-11.0) K/mm3 Hgb 11.9 (10.1-14.3) gm/dl Hct 34.6 (30.3-42.9) % Plt Count 296 (140-440) K/mm3 BMP 09/11/20 11:17 Sodium 137 Potassium 3.6 Chloride 100.9 Carbon Dioxide 26 BUN 13 Creatinine 1.0 Glucose 88 Calcium 9.2 Cardiac Enzymes 09/11/20 09/11/20 09/11/20 Range/Units 11:17 15:14 17:18 Troponin T < 0.010 < 0.010 < 0.010 (0.00-0.029) ng/mL Liver Function 09/11/20 Range/Units 11:17 Total Bilirubin < 0.20 (0.1-1.2) mg/dL Direct Bilirubin < 0.2 (0-0.2) mg/dL AST 17 (5-40) units/L ALT 11 (7-56) units/L Alkaline Phosphatase 59 (35-129) units/L Albumin 4.2 (3.9-5) g/dL - Imaging and Cardiology CT scan - abdomen: report reviewed US - abdomen: report reviewed Imaging and Cardiology: Chest x-ray No acute findings CTA of the chest 1. No evidence of pulmonary embolism Gallbladder distention with cholelithiasis, wall thickening and surrounding i nflammatory stranding suspicious for cholecystitis recommend correlation with right upper quadrant ultrasound No acute findings of the chest Right upper quadrant ultrasound Cholelithiasis and a distended gallbladder with borderline gallbladder wall thickening, pericholecystic fluid and positive sonographic Navarrete sign compatible with acute cholecystitis Assessment and Plan Advance Directives: Yes (Full code) VTE prophylaxis?: Chemical Plan of care discussed with patient/family: Yes - Patient Problems (1) SIRS (systemic inflammatory response syndrome) Current Visit: Yes Status: Acute Plan to address problem: Patient has a high white count Probably secondary to acute cholecystitis Patient on IV Zosyn Trend white count (2) Acute cholecystitis Current Visit: Yes Status: Acute Plan to address problem: Surgical consult requested (3) Chest pain Current Visit: Yes Status: Acute Qualifiers: Chest pain type: unspecified Qualified Code(s): R07.9 - Chest pain, unspecified Plan to address problem: No risk factors for coronary artery disease/acute SC We will check the serum troponin and CK-MB No stress test ordered at this point Patient does not have any risk factors for coronary artery disease Retrosternal chest pain may be secondary to severe reflux--GERD (4) Nicotine dependence Current Visit: Yes Status: Chronic Qualifiers: Nicotine product type: cigarettes Plan to address problem: Patient counseled about stopping smoking Patient initiated on NicoDerm patch (5) DVT prophylaxis Current Visit: Yes Status: Acute Plan to address problem: On heparin and GI prophylaxis
[2020-09-11] MEDS ORDERED: ACETAMINOPHEN 325 MG TAB PO PRN (18:56)
[2020-09-11] MEDS ORDERED: METOCLOPRAMIDE 10 MG/2 ML INJ IV PRN (18:56)
[2020-09-11] MEDS: MORPHINE 2 MG/1 ML INJ IV PRN (22:01)
[2020-09-11] MEDS: PIPERACIL/TAZOBACTA 4.5/NS 100 4.5 GM/100 ML VIAL IV SCH (22:01)
[2020-09-11] MEDS: HEPARIN 5,000 UNIT/1 ML VIAL SUB-Q SCH (22:01)
[2020-09-11] MEDS: ONDANSETRON 4 MG/2 ML INJ IV PRN (22:01)
[2020-09-11 22:06] LABS: Creatine Kinase MB < 1.0 ng/mL (0.0-4.0)
[2020-09-12 02:48] LABS: Basophils # (Auto) 0.1 K/mm3 (0.0-0.1); Basophils % (Auto) 0.6 % (0.0-1.8); Eosinophils # (Auto) 0.3 K/mm3 (0.0-0.4); Hematocrit 35.6 % (30.3-42.9); Hemoglobin 12.2 gm/dl (10.1-14.3); Lymphocytes # (Auto) 2.1 K/mm3 (1.2-5.4); Lymphocytes % (Auto) 19.4 % (13.4-35.0); Mean Corpuscular HGB Conc 34 % (30-34); Mean Corpuscular Volume 94 fl (79-97); Monocytes # (Auto) 0.6 K/mm3 (0.0-0.8); Monocytes % (Auto) 5.8 % (0.0-7.3); Platelet Count 232 K/mm3 (140-440); Red Blood Count 3.77 M/mm3 (3.65-5.03); Red Cell Distribution Width 14.9 % (13.2-15.2)
[2020-09-12 02:58] LABS: Albumin 3.7 g/dL (3.9-5); Calcium 8.4 mg/dL (8.4-10.2)
[2020-09-12] MEDS: MORPHINE 2 MG/1 ML INJ IV PRN ×2 (03:11→15:33)
[2020-09-12] MEDS: ONDANSETRON 4 MG/2 ML INJ IV PRN (03:12)
[2020-09-12 03:17] LABS: Creatine Kinase MB < 1.0 ng/mL (0.0-4.0)
[2020-09-12] MEDS: SODIUM CHLORIDE 0.9% 1000 ML 1,000 ML IV SCH ×3 (03:17→22:14)
--- NOTE | 2020-09-12 08:31 | Progress Note ---
Assessment and Plan - Patient Problems (1) Acute cholecystitis Current Visit: Yes Status: Acute Plan to address problem: Patient with acute cholecystitis. Patient currently on empiric antibiotics Zosyn. Continues to have pain distended gallbladder. Supportive care with pain control. Aggressive IV fluid resuscitation Empiric antibiotics Surgical consult (2) Chest pain Current Visit: Yes Status: Acute Qualifiers: Chest pain type: unspecified Qualified Code(s): R07.9 - Chest pain, unspecified Plan to address problem: Secondary to referred pain from acute cholecystitis. No risk factors no work-up necessary at this time. (3) SIRS (systemic inflammatory response syndrome) Current Visit: Yes Status: Acute Plan to address problem: Secondary to acute cholecystitis. Leukocytosis has resolved. No fever no chills. (4) Nicotine dependence Current Visit: Yes Status: Chronic Qualifiers: Nicotine product type: cigarettes Plan to address problem: Continue nicotine patch Educated about the dangers of smoking Subjective Date of service: 09/12/20 Principal diagnosis: Acute cholecystitis Interval history: 34-year-old female presents with right-sided abdominal pain chest pain for 3 days. Associated with meals. Nausea no vomiting. Pain progressively got worse. Upon presentation to the ED chest x-ray unremarkable CT angiogram unremarkable, however right upper quadrant ultrasound showed cholelithiasis with distended gallbladder and wall thickening. Patient was admitted for acute cholecystitis for surgical evaluation and supportive care. Patient at present only minimal pain at this time pain controlled with current IV pain medications. Unable to tolerate p.o. without pain at this particular time. No fever chills at this time. Hemodynamically stable await surgical consult. Objective - Constitutional Vitals: Vital Signs - 12hr 09/11/20 09/11/20 09/12/20 21:19 23:20 04:37 Temperature 98.5 F 98.7 F 98.3 F Pulse Rate 73 75 71 Respiratory 18 16 16 Rate Blood Pressure Blood Pressure 123/76 108/67 92/57 [Left] O2 Sat by Pulse 99 97 96 Oximetry 09/12/20 07:43 Temperature 98.7 F Pulse Rate 71 Respiratory 18 Rate Blood Pressure 97/59 Blood Pressure [Left] O2 Sat by Pulse 96 Oximetry General appearance: Present: no acute distress, well-nourished - EENT Eyes: PERRL, EOM intact ENT: hearing intact, clear oral mucosa Ears: bilateral: normal - Neck Neck: supple, normal ROM - Respiratory Respiratory effort: normal Respiratory: bilateral: CTA - Breasts Breasts: normal - Cardiovascular Rhythm: regular Heart Sounds: Present: S1 & S2. Absent: gallop, rub Extremities: pulses intact, No edema, normal color, Full ROM - Gastrointestinal General gastrointestinal: Present: soft, non-tender, non-distended, hypoactive bowel sounds, other (Right upper quadrant pain with minimal palpation.) - Genitourinary Female genitourinary: normal - Integumentary Integumentary: clear, warm, dry - Musculoskeletal Musculoskeletal: 1, strength equal bilaterally - Neurologic Neurologic: moves all extremities - Psychiatric Psychiatric: memory intact, appropriate mood/affect, intact judgment & insight - Labs CBC & Chem 7: 09/12/20 02:08 09/12/20 02:08 Labs: Abnormal lab results 09/11/20 09/11/20 09/11/20 Range/Units 11:17 11:17 11:17 WBC 18.9 H (4.5-11.0) K/mm3 [place] # (Auto) 1.0 H (0.0-0.8) K/mm3 Eos # (Auto) 0.5 H (0.0-0.4) K/mm3 Seg Neutrophils % 78.1 H (40.0-70.0) % Seg Neutrophils # 14.8 H (1.8-7.7) K/mm3 D-Dimer 533.07 H (0-234) ng/mlDDU Total Creatine Kinase (30-135) units/L Total Protein (6.3-8.2) g/dL Albumin (3.9-5) g/dL Lipase 3 L (13-60) units/L 09/12/20 09/12/20 09/12/20 Range/Units 02:08 02:08 02:08 WBC (4.5-11.0) K/mm3 [place] # (Auto) (0.0-0.8) K/mm3 Eos # (Auto) (0.0-0.4) K/mm3 Seg Neutrophils % 71.2 H (40.0-70.0) % Seg Neutrophils # (1.8-7.7) K/mm3 D-Dimer (0-234) ng/mlDDU Total Creatine Kinase 28 L (30-135) units/L Total Protein 6.1 L (6.3-8.2) g/dL Albumin 3.7 L (3.9-5) g/dL Lipase (13-60) units/L HEART Score - HEART Score EKG: Normal Age: < 45 Risk factors: No known risk factors Troponin: Troponin T < 0.010 ng/mL (0.00-0.029) 09/12/20 02:08 Troponin: < normal limit - Critical Actions Critical Actions: 0-3 pts:0.9-1.7%risk of adverse cardiac event.Candidate for discharge
[2020-09-12] MEDS: PIPERACIL/TAZOBACTA 4.5/NS 100 4.5 GM/100 ML VIAL IV SCH ×3 (08:37→22:15)
[2020-09-12] MEDS: HEPARIN 5,000 UNIT/1 ML VIAL SUB-Q SCH ×3 (08:37→21:11)
--- NOTE | 2020-09-12 15:59 | Consultation ---
History of Present Illness Consult date: 09/12/20 Reason for consult: abdominal pain - History of present illness History of present illness: 34 yo female with 3 day h/o substernal pain without nausea, vomiting, fever, chills, or SOB. Medications and Allergies Allergies Allergy/AdvReac Type Severity Reaction Status Date / Time cephalexin monohydrate AdvReac Intermediate Hives Verified 09/11/20 10:54 [From [email or web address]] Home Medications Medication Instructions Recorded Confirmed Last Taken Type No Known Home Medications [No 09/11/20 09/11/20 Unknown History Reported Home Medications] Active Meds: Active Medications Acetaminophen (Acetaminophen 325 Mg Tab) 650 mg PO Q4H PRN PRN Reason: Pain MILD(1-3)/Fever >100.5/GARCIA Heparin Sodium (Porcine) (Heparin 5,000 Unit/1 Ml Vial) 5,000 unit SUB-Q Q8HR MAXIME Last Admin: 09/12/20 13:44 Dose: 5,000 unit Documented by: Hydromorphone HCl (Hydromorphone 1 Mg/1 Ml Inj) 0.5 mg IV Q3H PRN PRN Reason: Pain , Severe (7-10) Sodium Chloride (Nacl 0.9% 1000 Ml) 1,000 mls @ 75 mls/hr IV DIRECT MAXIME Last Admin: 09/12/20 13:43 Dose: 75 mls/hr Documented by: Piperacillin Sod/Tazobactam Sod (Zosyn/Ns 4.5gm/100ml) 4.5 gm in 100 mls @ 200 mls/hr IV Q8HR MAXIME; Protocol Last Admin: 09/12/20 13:43 Dose: 200 mls/hr Documented by: Metoclopramide HCl (Metoclopramide 10 Mg/2 Ml Inj) 10 mg IV Q6H PRN PRN Reason: Nausea And Vomiting Morphine Sulfate (Morphine 2 Mg/1 Ml Inj) 2 mg IV Q4H PRN PRN Reason: Pain, Moderate (4-6) Last Admin: 09/12/20 15:33 Dose: 2 mg Documented by: Ondansetron HCl (Ondansetron 4 Mg/2 Ml Inj) 4 mg IV Q3H PRN PRN Reason: Nausea And Vomiting Last Admin: 09/12/20 03:12 Dose: 4 mg Documented by: Sodium Chloride (Sodium Chloride 0.9% 10 Ml Flush Syringe) 10 ml IV BID MAXIME Last Admin: 09/12/20 09:33 Dose: 10 ml Documented by: Sodium Chloride (Sodium Chloride 0.9% 10 Ml Flush Syringe) 10 ml IV PRN PRN PRN Reason: LINE FLUSH Review of Systems All systems: negative (none) Exam Vital Signs Temp Pulse Resp BP Pulse Ox 98.3 F 77 24 151/94 99 09/11/20 09:24 09/11/20 09:24 09/11/20 09:24 09/11/20 09:24 09/11/20 09:24 - Abdomen Abdomen: Present: soft, bowel sounds normal (Mild epigastric tenderness without rebound or guarding.) Results - Labs 09/12/20 02:08 09/12/20 02:08 Abnormal lab results 09/12/20 09/12/20 09/12/20 Range/Units 02:08 02:08 02:08 Seg Neutrophils % 71.2 H (40.0-70.0) % Total Creatine Kinase 28 L (30-135) units/L Total Protein 6.1 L (6.3-8.2) g/dL Albumin 3.7 L (3.9-5) g/dL 09/12/20 Range/Units 09:10 Seg Neutrophils % (40.0-70.0) % Total Creatine Kinase 28 L (30-135) units/L Total Protein (6.3-8.2) g/dL Albumin (3.9-5) g/dL Diabetes panel 09/12/20 09/12/20 Range/Units 02:08 02:08 Sodium 137 (137-145) mmol/L Potassium 4.1 (3.6-5.0) mmol/L Chloride 102.4 (98-107) mmol/L Carbon Dioxide 27 (22-30) mmol/L BUN 10 (7-17) mg/dL Creatinine 1.1 (0.6-1.2) mg/dL Glucose 82 (65-100) mg/dL Hemoglobin A1c 4.5 (4-6) % Calcium 8.4 (8.4-10.2) mg/dL AST 15 (5-40) units/L ALT 10 (7-56) units/L Alkaline Phosphatase 55 (35-129) units/L Total Protein 6.1 L (6.3-8.2) g/dL Albumin 3.7 L (3.9-5) g/dL Calcium panel 09/12/20 Range/Units 02:08 Calcium 8.4 (8.4-10.2) mg/dL Albumin 3.7 L (3.9-5) g/dL Pituitary panel 09/12/20 Range/Units 02:08 Sodium 137 (137-145) mmol/L Potassium 4.1 (3.6-5.0) mmol/L Chloride 102.4 (98-107) mmol/L Carbon Dioxide 27 (22-30) mmol/L BUN 10 (7-17) mg/dL Creatinine 1.1 (0.6-1.2) mg/dL Glucose 82 (65-100) mg/dL Calcium 8.4 (8.4-10.2) mg/dL Adrenal panel 09/12/20 Range/Units 02:08 Sodium 137 (137-145) mmol/L Potassium 4.1 (3.6-5.0) mmol/L Chloride 102.4 (98-107) mmol/L Carbon Dioxide 27 (22-30) mmol/L BUN 10 (7-17) mg/dL Creatinine 1.1 (0.6-1.2) mg/dL Glucose 82 (65-100) mg/dL Calcium 8.4 (8.4-10.2) mg/dL Total Bilirubin 0.70 (0.1-1.2) mg/dL AST 15 (5-40) units/L ALT 10 (7-56) units/L Alkaline Phosphatase 55 (35-129) units/L Total Protein 6.1 L (6.3-8.2) g/dL Albumin 3.7 L (3.9-5) g/dL - Imaging US - abdomen: report reviewed Additional studies: LFT unremarkable. Assessment and Plan - Patient Problems (1) Acute cholecystitis Current Visit: Yes Status: Acute Plan to address problem: 1) Continue NPO 2) Lap shane tomorrow 3) SCD 4) IV Levaquin
[2020-09-13] MEDS: PIPERACIL/TAZOBACTA 4.5/NS 100 4.5 GM/100 ML VIAL IV SCH ×3 (05:49→22:30)
[2020-09-13] MEDS: SODIUM CHLORIDE 0.9% 1000 ML 1,000 ML IV SCH ×2 (05:50→12:40)
[2020-09-13] MEDS: HEPARIN 5,000 UNIT/1 ML VIAL SUB-Q SCH ×3 (05:57→22:29)
[2020-09-13 06:28] LABS: Basophils # (Auto) 0.1 K/mm3 (0.0-0.1); Basophils % (Auto) 0.6 % (0.0-1.8); Eosinophils # (Auto) 0.2 K/mm3 (0.0-0.4); Eosinophils % (Auto) 2.2 % (0.0-4.3); Hematocrit 35.3 % (30.3-42.9); Lymphocytes # (Auto) 1.8 K/mm3 (1.2-5.4); Lymphocytes % (Auto) 18.1 % (13.4-35.0); Mean Corpuscular HGB Conc 34 % (30-34); Mean Corpuscular Volume 95 fl (79-97); Monocytes # (Auto) 0.5 K/mm3 (0.0-0.8); Monocytes % (Auto) 5.1 % (0.0-7.3); Platelet Count 248 K/mm3 (140-440); Red Cell Distribution Width 14.6 % (13.2-15.2)
[2020-09-13 06:50] LABS: BUN/Creatinine Ratio 9; Blood Urea Nitrogen 8 mg/dL (7-17); Calcium 7.7 mg/dL (8.4-10.2); Hemolysis Index 2
[2020-09-13] MEDS: HYDROmorphone 1 MG/1 ML INJ IV PRN ×5 (09:37→22:29)
[2020-09-13] MEDS ORDERED: LIDOCAINE MPF (2%) 20 MG/1 ML VIAL 5 ML ONE (15:45)
[2020-09-13] MEDS ORDERED: dexAMETHasone 20 MG/5 ML VIAL ONE (15:45)
[2020-09-13] MEDS ORDERED: ONDANSETRON 4 MG/2 ML INJ ONE (15:45)
[2020-09-13] MEDS ORDERED: ROCURONIUM 50 MG/5 ML INJ IV ONE (15:45)
[2020-09-13] MEDS ORDERED: propofoL 200 MG/20 ML VIAL IV ONE (15:46)
[2020-09-13] MEDS ORDERED: HYDROmorphone 1 MG/1 ML INJ ONE (15:46)
[2020-09-13] MEDS ORDERED: ONDANSETRON 4 MG/2 ML INJ IV PRN (15:52)
--- NOTE | 2020-09-13 15:52 | Anesthesia Day of Surgery ---
Anesthesia Day of Surgery - Day of Surgery Patient Examined: Yes Patient H&P Reviewed: Yes Patient is NPO: Yes
--- NOTE | 2020-09-13 15:52 | Anesthesia Consultation ---
Anesthesia Consult and Med Hx Date of service: 09/13/20 - Airway Anesthetic Teeth Evaluation: Poor ROM Head & Neck: Adequate Mental/Hyoid Distance: Adequate Mallampati Class: Class II Intubation Access Assessment: Probably Good - Pre-Operative Health Status ASA Pre-Surgery Classification: ASA2 Proposed Anesthetic Plan: General - Pulmonary Hx Smoking: Yes Hx Respiratory Symptoms: Yes (chronic bronchitis) - Cardiovascular System Hx Hypertension: No Hx Heart Attack/AMI: No - Central Nervous System CVA: No - Gastrointestinal Hx Gastroesophageal Reflux Disease: Yes - Endocrine Hx Renal Disease: No Hx Liver Disease: No Hx Insulin Dependent Diabetes: No Hx Non-Insulin Dependent Diabetes: No Hx Thyroid Disease: No - Other Systems Hx Obesity: Yes (BMI 38)
[2020-09-13] MEDS ORDERED: BUPIVACAINE-EPINEPHRINE/PF 0.5%-1:200,000 (30 ML) VIAL INFILTRATI ONE ×2 (16:15→17:46)
[2020-09-13] MEDS ORDERED: PHENYLEPHRINE/NS 1,000 MCG/10 ML SYRINGE (OR USE) IV ONE (16:49)
[2020-09-13] MEDS ORDERED: LACTATED RINGERS 1,000 ML ONE (16:49)
[2020-09-13] MEDS ORDERED: GLYCOPYRROLATE 0.4 MG/2 ML INJ ONE (17:13)
[2020-09-13] MEDS ORDERED: NEOSTIGMINE 10MG/10 ML INJ MDV ONE (17:13)
[2020-09-13] MEDS ORDERED: BUPIVACAINE-EPINEPHRINE/PF 0.5%-1:200,000 (10 ML) VIAL INFILTRATI ONE (17:25)
--- NOTE | 2020-09-13 18:03 | Procedure Note ---
Date of procedure: 09/13/20 Pre-op diagnosis: 1) Acute cholecystitis 2) Incarcerated umbilical hernia Post-op diagnosis: same Procedure: 1) Laparoscopic cholecystectomy 2) Open repair of incarcerated umbilical hernia Description of procedure: Pt was placed supine on the OR table. General anesthesia was administered. Abdomen was prepped and draped. Proposed trocar sites were infiltrated with 15 ml of 0.5% Marcaine with epinephrine. A small infraumbilical incision was made. The hernia sac was immediately identified and was dissected free from the adjacent SQ tissue and umbilical dermis. The hernia sac was entered and was found to contain incarcerated omentum. The omentum was freed from the hernia sac and was reduced back into the peritoneal cavity. The hernia sac was excised at the level of the fascia. A Lisa port was inserted into the peritoneal cavity via the fascial defect and pneumoperitoneum established. 10 mm subxiphoid, 5 mm RUQ and 5 mm right lateral subcostal ports were inserted into the peritoneal cavity under direct vision without incident. Pt was placed feet down and right side up. Omental adhesions to the gallbladder were bluntly lysed. Fundus of the gallbladder was grasped and was retracted cephalad. The gallbladder neck was carefully dissected and the cystic artery and duct identified and skeletonized. The critical view of safety was obtained. Cystic duct was milked towards the gallbladder and the cystic artery and duct doubly clipped and divided. Gallbladder was dissected off of it's hepatic fossa with the Bovie. Gallbladder was placed in an endobag and the endobag removed via the umbilical fascial defect. The Lisa port was replaced and pneumoperitoneum re-established. Irrigation fluid used during the procedure was aspirated from Trujillo's pouch and the subhepatic space. Areas of dissection were found to be hemostatic. Upper abdominal ports were removed and were found to be hemostatic under low pressure. The umbilical fascial defect was closed with 3 interrupted sutures of 0-Ethibond. Skin incisions were closed with running, subcuticular sutures of 4-0 Monocryl. Skin glue was applied to all incisions. Pt tolerated the procedure well. Pt was extubated in the OR and was taken to PACU in stable condition. Anesthesia: GETA Surgeon: ANNE-MARIE SANTIAGO Estimated blood loss: minimal Pathology: list (gallbladder) Specimen disposition: to lab Condition: stable Disposition: PACU
--- NOTE | 2020-09-13 19:11 | Progress Note ---
Assessment and Plan - Patient Problems (1) Acute cholecystitis Current Visit: Yes Status: Acute Plan to address problem: Patient pending surgical intervention, n.p.o. overnight, pain control, IV fluid resuscitation therapy, bowel rest. (2) SIRS (systemic inflammatory response syndrome) Current Visit: Yes Status: Acute Plan to address problem: IV antibiotic therapy, supportive care, CBC, repeat CBC in a.m. (3) Nicotine dependence Current Visit: Yes Status: Chronic Qualifiers: Nicotine product type: cigarettes Substance use status: in withdrawal Qualified Code(s): F17.213 - Nicotine dependence, cigarettes, with withdrawal Plan to address problem: Smoking cessation counseling, supportive care. Behavior change counseling, +15 minutes. (4) DVT prophylaxis Current Visit: Yes Status: Acute Plan to address problem: SCD to bilateral lower extremities while in bed, patient is ambulatory. History Interval history: 34 YO Female HD #3 with Acute Cholecystitis, Obesity. Patient is pending surgical intervention. Patient denies fever, chills, chest pain. No reported nursing events overnight. Hospitalist Physical - Constitutional Vitals: Temp Pulse Resp BP Pulse Ox 98 F 65 14 102/59 96 09/13/20 18:40 09/13/20 18:45 09/13/20 18:45 09/13/20 18:45 09/13/20 18:45 General appearance: Present: no acute distress, obese - EENT Eyes: Present: PERRL ENT: hearing intact - Neck Neck: Present: supple - Respiratory Respiratory: bilateral: CTA - Cardiovascular Rhythm: regular Heart Sounds: Present: S1 & S2 - Extremities Extremities: no ischemia Peripheral Pulses: within normal limits - Abdominal General gastrointestinal: soft, tender, non-distended Localized gastrointestinal: tender: RUQ - Integumentary Integumentary: Present: clear, dry - Psychiatric Psychiatric: appropriate mood/affect, cooperative - Neurologic Neurologic: CNII-XII intact HEART Score - HEART Score EKG: Normal Age: < 45 Risk factors: No known risk factors Troponin: Troponin T 0.010 ng/mL (0.00-0.029) 09/12/20 09:10 Troponin: < normal limit - Critical Actions Critical Actions: 0-3 pts:0.9-1.7%risk of adverse cardiac event.Candidate for discharge Results - Labs CBC & Chem 7: 09/13/20 06:04 09/13/20 06:04 Labs: Laboratory Last Values WBC 10.1 K/mm3 (4.5-11.0) 09/13/20 06:04 RBC 3.70 M/mm3 (3.65-5.03) 09/13/20 06:04 Hgb 12.0 gm/dl (10.1-14.3) 09/13/20 06:04 Hct 35.3 % (30.3-42.9) 09/13/20 06:04 MCV 95 fl (79-97) 09/13/20 06:04 MCH 32 pg (28-32) 09/13/20 06:04 MCHC 34 % (30-34) 09/13/20 06:04 RDW 14.6 % (13.2-15.2) 09/13/20 06:04 Plt Count 248 K/mm3 (140-440) 09/13/20 06:04 Lymph % (Auto) 18.1 % (13.4-35.0) 09/13/20 06:04 Treg[place] % (Auto) 5.1 % (0.0-7.3) 09/13/20 06:04 Eos % (Auto) 2.2 % (0.0-4.3) 09/13/20 06:04 Baso % (Auto) 0.6 % (0.0-1.8) 09/13/20 06:04 Lymph # (Auto) 1.8 K/mm3 (1.2-5.4) 09/13/20 06:04 [place] # (Auto) 0.5 K/mm3 (0.0-0.8) 09/13/20 06:04 Eos # (Auto) 0.2 K/mm3 (0.0-0.4) 09/13/20 06:04 Baso # (Auto) 0.1 K/mm3 (0.0-0.1) 09/13/20 06:04 Seg Neutrophils % 74.0 % (40.0-70.0) H 09/13/20 06:04 Seg Neutrophils # 7.5 K/mm3 (1.8-7.7) 09/13/20 06:04 D-Dimer 533.07 ng/mlDDU (0-234) H 09/11/20 11:17 Sodium 139 mmol/L (137-145) 09/13/20 06:04 Potassium 3.5 mmol/L (3.6-5.0) L 09/13/20 06:04 Chloride 104.8 mmol/L (98-107) 09/13/20 06:04 Carbon Dioxide 21 mmol/L (22-30) L 09/13/20 06:04 Anion Gap 17 mmol/L 09/13/20 06:04 BUN 8 mg/dL (7-17) 09/13/20 06:04 Creatinine 0.9 mg/dL (0.6-1.2) 09/13/20 06:04 Estimated GFR > 60 ml/min 09/13/20 06:04 BUN/Creatinine Ratio 9 % 09/13/20 06:04 Glucose 69 mg/dL (65-100) 09/13/20 06:04 Hemoglobin A1c 4.5 % (4-6) 09/12/20 02:08 Calcium 7.7 mg/dL (8.4-10.2) L 09/13/20 06:04 Total Bilirubin 0.70 mg/dL (0.1-1.2) 09/12/20 02:08 Direct Bilirubin < 0.2 mg/dL (0-0.2) 09/11/20 11:17 Indirect Bilirubin 0.2 mg/dL 09/11/20 11:17 AST 15 units/L (5-40) 09/12/20 02:08 ALT 10 units/L (7-56) 09/12/20 02:08 Alkaline Phosphatase 55 units/L (35-129) 09/12/20 02:08 Total Creatine Kinase 28 units/L (30-135) L 09/12/20 09:10 CK-MB (CK-2) 1.0 ng/mL (0.0-4.0) 09/12/20 09:10 CK-MB (CK-2) Rel Index 3.5 (0-4) 09/12/20 09:10 Troponin T 0.010 ng/mL (0.00-0.029) 09/12/20 09:10 Total Protein 6.1 g/dL (6.3-8.2) L 09/12/20 02:08 Albumin 3.7 g/dL (3.9-5) L 09/12/20 02:08 Albumin/Globulin Ratio 1.5 % 09/12/20 02:08 Lipase 3 units/L (13-60) L 09/11/20 11:17 HCG, Qual Negative (Negative) 09/11/20 11:17 Braxton/IV: Voiding Method Toilet Active Medications - Current Medications Current Medications: Generic Name Dose Route Start Last Admin Trade Name Freq PRN Reason Stop Dose Admin Acetaminophen 650 mg 09/11/20 18:56 Acetaminophen 325 Mg Tab PO Q4H PRN Pain MILD(1-3)/Fever >100.5/GARCIA Heparin Sodium (Porcine) 5,000 unit 09/11/20 22:00 09/13/20 13:19 Heparin 5,000 Unit/1 Ml Vial SUB-Q Not Given Q8HR MAXIME Hydromorphone HCl 0.5 mg 09/11/20 18:56 09/13/20 13:46 Hydromorphone 1 Mg/1 Ml Inj IV 0.5 mg Q3H PRN Administration Pain , Severe (7-10) Hydromorphone HCl 0.5 mg 09/13/20 15:52 09/13/20 18:36 Hydromorphone 1 Mg/1 Ml Inj IV 09/14/20 15:51 0.5 mg Q10MIN PRN Administration Pain , Severe (7-10) Sodium Chloride 1,000 mls @ 75 mls/hr 09/11/20 19:00 09/13/20 12:40 Nacl 0.9% 1000 Ml IV 75 mls/hr DIRECT MAXIME Administration Piperacillin Sod/Tazobactam Sod 4.5 gm in 100 mls @ 200 mls/hr 09/11/20 22:00 09/13/20 13:21 Zosyn/Ns 4.5gm/100ml IV 200 mls/hr Q8HR MAXIME Administration Protocol Metoclopramide HCl 10 mg 09/11/20 18:56 Metoclopramide 10 Mg/2 Ml Inj IV Q6H PRN Nausea And Vomiting Morphine Sulfate 2 mg 09/11/20 18:56 09/12/20 15:33 Morphine 2 Mg/1 Ml Inj IV 2 mg Q4H PRN Administration Pain, Moderate (4-6) Ondansetron HCl 4 mg 09/11/20 18:56 09/12/20 03:12 Ondansetron 4 Mg/2 Ml Inj IV 4 mg Q3H PRN Administration Nausea And Vomiting Ondansetron HCl 4 mg 09/13/20 15:52 Ondansetron 4 Mg/2 Ml Inj IV ONCE PRN Nausea And Vomiting Sodium Chloride 10 ml 09/11/20 22:00 09/13/20 09:38 Sodium Chloride 0.9% 10 Ml Flush Syringe IV 10 ml BID MAXIME Administration Sodium Chloride 10 ml 09/11/20 18:56 Sodium Chloride 0.9% 10 Ml Flush Syringe IV PRN PRN LINE FLUSH
--- NOTE | 2020-09-13 20:35 | Post Anesthesia Evaluation ---
- Post Anesthesia Evaluation Patient Participated: Yes Airway Patent: Yes Stable Respiratory Function: Yes Nausea/Vomiting: No Temp > 96.8F: Yes Pain Manageable: Yes Adequeate Hydration: Yes Anesthesia Complications: No
[2020-09-14] MEDS: HYDROmorphone 1 MG/1 ML INJ IV PRN ×4 (03:50→17:17)
[2020-09-14] MEDS: SODIUM CHLORIDE 0.9% 1000 ML 1,000 ML IV SCH (04:00)
[2020-09-14] MEDS: PIPERACIL/TAZOBACTA 4.5/NS 100 4.5 GM/100 ML VIAL IV SCH (05:59)
[2020-09-14] MEDS: HEPARIN 5,000 UNIT/1 ML VIAL SUB-Q SCH (06:00)
--- NOTE | 2020-09-14 09:54 | Progress Note ---
Assessment and Plan - Patient Problems (1) Acute cholecystitis Current Visit: Yes Status: Acute Plan to address problem: 1) Pt can be discharged. 2) Regular diet 3) No lifting or straining 4) May shower tomorrow 5) F/u in my office in 2 weeks 6) Narcotic of choice + Cipro, 500 mg po bid X 7 days Subjective Date of service: 09/14/20 Patient Reports: Positive: no new complaints, feels better, tolerating liquids well Objective Vital Signs - 12hr 09/13/20 09/13/20 09/13/20 22:00 22:29 23:15 Temperature 98.2 F Pulse Rate 71 Respiratory 17 18 Rate Respiratory 17 Rate [Chest] Blood Pressure 104/67 O2 Sat by Pulse 94 Oximetry 09/14/20 09/14/20 09/14/20 03:50 04:20 04:39 Temperature 97.8 F Pulse Rate 70 Respiratory 17 17 18 Rate Respiratory Rate [Chest] Blood Pressure 109/68 O2 Sat by Pulse 99 Oximetry 09/14/20 07:12 Temperature 98.4 F Pulse Rate 77 Respiratory 16 Rate Respiratory Rate [Chest] Blood Pressure 102/67 O2 Sat by Pulse 98 Oximetry - Abdomen [id number] 4, [id number] 6, [id number] 8 Hernia: none - Labs 09/13/20 06:04 09/13/20 06:04
--- NOTE | 2020-09-14 11:19 | Discharge Summary ---
Providers - Providers Date of Admission: 09/12/20 18:35 Attending physician: MONTSE VALDEZ 09/11/20 19:01 Consult to Physician [CONS] Routine Comment: Consulting Provider: ANNE-MARIE SANTIAGO Physician Instructions: Reason For Exam: Acute cholecystitis Primary care physician: WEN DRAKE MD Hospitalization Condition: Fair Disposition: DC-30 STILL A PATIENT - Discharge Diagnoses (1) Acute cholecystitis Status: Acute (2) SIRS (systemic inflammatory response syndrome) Status: Acute (3) Nicotine dependence Status: Chronic Qualifiers: Nicotine product type: cigarettes Substance use status: in withdrawal Qualified Code(s): F17.213 - Nicotine dependence, cigarettes, with withdrawal (4) DVT prophylaxis Status: Acute Exam - Constitutional Vitals: Temp Pulse Resp BP Pulse Ox 98.4 F 77 16 102/67 98 09/14/20 07:12 09/14/20 07:12 09/14/20 07:12 09/14/20 07:12 09/14/20 07:12 Plan Follow up with: WEN DRAKE MD [Primary Care Provider] - 3-5 Days
--- NOTE | 2020-09-14 16:20 | Post Anesthesia Evaluation ---
- Post Anesthesia Evaluation Patient Participated: Yes Airway Patent: Yes Stable Respiratory Function: Yes Nausea/Vomiting: No Temp > 96.8F: Yes Pain Manageable: Yes Adequeate Hydration: Yes Anesthesia Complications: No Block Receding Appropriately: Not Applicable Patient on Ventilator: No
[2020-09-14 18:32] VITALS: BP 106/51
== END 2020-09-14 19:11 | disposition home or self-care (01) | DRG 418 ==
LOC: ED 09:09 → 3A 18:57 → 3B-SURG 19:51 → OBSVTOIN 09-12 18:35
PROVIDERS: ADMIT Internal Medicine; ATTEND Internal Medicine
PROC: 0FT44ZZ Resection of Gallbladder, Percutaneous Endoscopic Approach (ICD-10-PCS; principal; 2020-09-13)
PROC: 0WQF0ZZ Repair Abdominal Wall, Open Approach (ICD-10-PCS; 2020-09-13)
DX: K81.0 Acute cholecystitis (principal); R65.10 Systemic inflammatory response syndrome (SIRS) of non-infectious origin without acute organ dysfunction; F17.210 Nicotine dependence, cigarettes, uncomplicated; Z79.899 Other long term (current) drug therapy
CPT/HCPCS: 36415; 71046; 71275; 76705; 80048; 80053; 80076; 82550; 82553; 83036; 83690; 84484; 84703; 85025; 85379; 88304; 93005; 96365; 96366; 96367; 96375; 96376; G0378; J1100; J1170; J1644; J2270; J2370; J2405; J2543; J2704; J2710; J3010; J7030; J7120; Q9967

== ENCOUNTER 2020-11-08 09:15 | Emergency (ER) | payer SELFPAY ==
--- NOTE | 2020-11-08 10:00 | Emergency Department Report ---
ED Female HPI - General Chief complaint: Urogenital-Female Stated complaint: PAINFUL URINATION Time Seen by Provider: 11/08/20 09:54 Source: patient Mode of arrival: Ambulatory Limitations: No Limitations - History of Present Illness Initial comments: 35-year-old female presents to the ER today with complaints of dysuria and vaginal irritation. Patient states that symptoms started 1 week ago. She reports dysuria with urinary odor, urinary urgency but when she goes to urinate only small amount of urine comes out. She also reports vaginal pain with sexual intercourse and she states that her vaginal area feels "raw" and she is having mild yellow vaginal discharge. She reports associated mild lower abdominal cramping and mild lower back pain. Her last menstrual cycle was 10/17/2020. She is not on any control. Patient reports 2 sexual partners, one recent, and when she has had off and on for "a while". Patient states that she has a history of recurrent UTIs, and also has had a history of gonorrhea and chlamydia in the past. She states that she does not have insurance and therefore has not followed up with urologist for her recurrent UTIs. She reports no other symptoms at this time. Complaint: vaginal discharge, dysuria -: week(s) (1) - Related Data Previous Rx's Medication Instructions Recorded Last Taken Type Ciprofloxacin HCl 500 mg PO BID #14 tablet 09/14/20 Unknown Rx oxyCODONE /ACETAMINOPHEN [Percocet 1 tab PO Q6HR PRN #24 tablet 09/14/20 Unknown Rx 5/325] DOXYCYCLINE Hyclate [Vibramycin 100 mg PO Q12HR #14 capsule 11/08/20 Unknown Rx CAP] Fluconazole [Diflucan TAB] 200 mg PO QDAY #1 tablet 11/08/20 Unknown Rx Nystatin Cream [Mycostatin Cream] 1 applic TP TID #30 tube 11/08/20 Unknown Rx metroNIDAZOLE [Flagyl] 500 mg PO Q12HR #14 tab 11/08/20 Unknown Rx Allergies Allergy/AdvReac Type Severity Reaction Status Date / Time cephalexin monohydrate AdvReac Intermediate Hives Verified 11/08/20 09:33 [From Keflex] ED Review of Systems ROS: Stated complaint: PAINFUL URINATION Other details as noted in HPI Comment: All other systems reviewed and negative Constitutional: denies: chills, fever Eyes: denies: eye pain, eye discharge, vision change ENT: denies: ear pain, throat pain, dental pain, hearing loss, epistaxis, congestion Respiratory: denies: cough, shortness of breath, SOB with exertion, SOB at rest, wheezing Cardiovascular: denies: chest pain, palpitations Gastrointestinal: abdominal pain. denies: nausea, vomiting, diarrhea Genitourinary: urgency, dysuria, discharge, dyspareunia, other (vaginal irritation). denies: frequency, hematuria, abnormal menses Musculoskeletal: back pain Skin: denies: rash, lesions, change in color, change in hair/nails, pruritus Neurological: denies: headache, weakness, paresthesias Psychiatric: denies: auditory hallucinations, visual hallucinations, homicidal thoughts, suicidal thoughts Hematological/Lymphatic: denies: easy bleeding, easy bruising, swollen glands ED Past Medical Hx - Past Medical History Hx Hypertension: No Hx Heart Attack/AMI: No Hx Diabetes: No Hx Deep Vein Thrombosis: No Hx Liver Disease: No Hx Renal Disease: No Hx Sickle Cell Disease: No Hx Seizures: No Hx Asthma: No Hx HIV: No Additional medical history: abd pain - Surgical History Additional Surgical History: 2013, 2012, 2007 - Social History Smoking Status: Current Every Day Smoker Substance Use Type: None - Medications Home Medications: Home Medications Medication Instructions Recorded Confirmed Last Taken Type Ciprofloxacin HCl 500 mg PO BID #14 tablet 09/14/20 Unknown Rx oxyCODONE /ACETAMINOPHEN [Percocet 1 tab PO Q6HR PRN #24 tablet 09/14/20 Unknown Rx 5/325] DOXYCYCLINE Hyclate [Vibramycin 100 mg PO Q12HR #14 capsule 11/08/20 Unknown Rx CAP] Fluconazole [Diflucan TAB] 200 mg PO QDAY #1 tablet 11/08/20 Unknown Rx Nystatin Cream [Mycostatin Cream] 1 applic TP TID #30 tube 11/08/20 Unknown Rx metroNIDAZOLE [Flagyl] 500 mg PO Q12HR #14 tab 11/08/20 Unknown Rx ED Physical Exam - General Limitations: No Limitations General appearance: alert, in no apparent distress, obese - Head Head exam: Present: atraumatic, normocephalic, normal inspection - Eye Eye exam: Present: normal appearance, PERRL, EOMI Pupils: Present: normal accommodation - ENT ENT exam: Present: normal exam, mucous membranes moist - Neck Neck exam: Present: normal inspection, full ROM - Respiratory Respiratory exam: Present: normal lung sounds bilaterally. Absent: respiratory distress - Cardiovascular Cardiovascular Exam: Present: regular rate, normal rhythm, normal heart sounds - GI/Abdominal GI/Abdominal exam: Present: soft. Absent: distended, tenderness, guarding, rebound - External exam: Present: lesions (Patient has a single/superficially ulcerated/excoriated painful area noted to the inferior aspect of the introitus), other (Small, erythematous, maculopapular patches with few associated satellite lesions noted to the groin region). Absent: erythema, swelling, lacerations, ecchymosis, bleeding Speculum exam: Present: vaginal discharge (Small, clear white). Absent: erythema, vaginal bleeding, foreign body, tissue, laceration, other Bi-manual exam: Present: normal bi-manual exam - Extremities Exam Extremities exam: Present: normal inspection - Neurological Exam Neurological exam: Present: alert, oriented X3, CN II-XII intact, normal gait - Psychiatric Psychiatric exam: Present: normal affect, normal mood - Skin Skin exam: Present: intact ED Course Vital Signs 11/08/20 11/08/20 11/08/20 09:31 13:35 13:45 Temperature 98.8 F 98.9 F Pulse Rate 89 89 71 Respiratory 16 18 18 Rate Blood Pressure 128/86 Blood Pressure 157/107 [Right] O2 Sat by Pulse 100 100 100 Oximetry ED Medical Decision Making - Medical Decision Making 1330: wet prep reviewed and is positive for bacterial vaginosis, no trichomoniasis or yeast. Urinalysis is questionable, UTI versus contamination, urine culture is pending. Syphilis test was nonreactive. Patient treated prophylactically for gonorrhea and she will be discharged home with doxycycline to treat for possible chlamydia/UTI. Also be treated for external vaginal yeast infection, and also be given Diflucan to take after she completes the doxycycline and Flagyl. Patient overall well-appearing, not toxic and not in any acute distress. Her vital signs are stable. She has a soft nontender abdomen. Pelvic exam did not suggest significant PID, or concern for ovarian torsion or abscess at this time. She is neurologically intact with a normal gait. Discussed lab results, suspected diagnosis and treatment plan with patient. Patient was stable at time of discharge. Critical care attestation.: If time is entered above; I have spent that time in minutes in the direct care of this critically ill patient, excluding procedure time. ED Disposition Clinical Impression: Bacterial vaginosis, UTI (urinary tract infection), Vaginal ulceration, Concern about STD in female without diagnosis, Liliam infection of genital region Disposition: - TO HOME OR SELFCARE Is pt being admited?: No Does the pt Need Aspirin: No Condition: Stable Instructions: Bacterial Vaginosis, [id number], Urinary Tract Infection, Adult, Skin Yeast Infection, Bacterial Vaginosis (ED) Additional Instructions: Take the doxycycline and the Flagyl as prescribed. Use the nystatin cream as instructed and take the Diflucan after you complete the doxycycline and the Flagyl. You will be notified about the gonorrhea and Chlamydia test results as well as the syphilis test results. Recommend no sexual contact for at least 7 days. Your partner should be need to be tested and treated as well. Follow-up with the [facility] listed on your discharge instructions. Return to the ER if symptoms changes or worsens in any way. Prescriptions: Fluconazole [Diflucan TAB] 200 mg PO QDAY #1 tablet metroNIDAZOLE [Flagyl] 500 mg PO Q12HR #14 tab Nystatin Cream [Mycostatin Cream] 1 applic TP TID #30 tube DOXYCYCLINE Hyclate [Vibramycin CAP] 100 mg PO Q12HR #14 capsule Referrals: TODD REYNOSO MD [Staff Physician] - 3-5 Days [facility] [Provider Group] - 3-5 Days Forms: STI Treatment and Prevention Time of Disposition: 13:28
[2020-11-08] MEDS ORDERED: GENTAMICIN 40 MG/ML VIAL 2 ML IM ONE (10:40)
[2020-11-08 10:56] LABS: HCG Qualitative,Urine Negative (Negative)
[2020-11-08 11:00] LABS: Bacteria,Urine 1+ /HPF (Negative); Bilirubin,Urine NEG (Negative); Blood,Urine SM (Negative); Color,Urine Yellow (Yellow); Mucus,Urine FEW /HPF; Protein,Urine <15 mg/dL mg/dL (Negative); Urobilinogen,Urine < 2.0 mg/dL (<2.0)
[2020-11-08 13:46] VITALS: BP 157/107
== END 2020-11-08 13:32 | disposition home or self-care (01) ==
LOC: ED 09:15
DX: N76.0 Acute vaginitis (principal); B96.89 Other specified bacterial agents as the cause of diseases classified elsewhere; Z20.2 Contact with and (suspected) exposure to infections with a predominantly sexual mode of transmission; F17.200 Nicotine dependence, unspecified, uncomplicated; N39.0 Urinary tract infection, site not specified; Z79.899 Other long term (current) drug therapy
CPT/HCPCS: 36415; 81001; 81025; 86592; 87086; 87210; 87591; 96372; 99284; J1580

== ENCOUNTER 2021-09-29 15:53 | Emergency (ER) | payer SELFPAY ==
[2021-09-29] MEDS ORDERED: ONDANSETRON 4 MG/2 ML INJ IV ONE (22:25)
[2021-09-29] MEDS ORDERED: MORPHINE 4 MG/1 ML INJ IV ONE (22:25)
[2021-09-29] MEDS ORDERED: SODIUM CHLORIDE 0.9% 1000 ML 1,000 ML IV ONE (22:25)
[2021-09-29 23:03] LABS: Basophils % (Auto) 0.2 % (0.0-1.8); Eosinophils # (Auto) 0.1 K/mm3 (0.0-0.4); Eosinophils % (Auto) 0.4 % (0.0-4.3); Hematocrit 40.3 % (30.3-42.9); Hemoglobin 13.5 gm/dl (10.1-14.3); Lymphocytes # (Auto) 1.2 K/mm3 (1.2-5.4); Lymphocytes % (Auto) 7.1 % (13.4-35.0); Mean Corpuscular HGB Conc 33 % (30-34); Mean Corpuscular Volume 94 fl (79-97); Monocytes # (Auto) 0.8 K/mm3 (0.0-0.8); Monocytes % (Auto) 4.5 % (0.0-7.3); Platelet Count 227 K/mm3 (140-440); Red Cell Distribution Width 15.3 % (13.2-15.2)
[2021-09-29 23:26] LABS: Alanine Aminotransferase 15 units/L (7-56); BUN/Creatinine Ratio 8; Blood Urea Nitrogen 6 mg/dL (7-17); Calcium 9.4 mg/dL (8.4-10.2); Hemolysis Index 10
--- NOTE | 2021-09-30 00:02 | Cat Scan Report ---
CT ABDOMEN AND PELVIS WITH CONTRAST HISTORY: LOWER ABDOMINAL PAIN COMPARISON: Prior CT on 08/25/2019 TECHNIQUE: Routine abdominal and pelvic CT exam performed following intravenous contrast administrat ion. Portable. All CT scans at this location are performed using CT dose reduction for ALARA by means of automated exposure control. FINDINGS: CT ABDOMEN: Lung Bases: Lung bases are clear. There is a moderate hiatal hernia. Liver: No significant abnormality. Biliary: Gallbladder is surgically absent. Spleen: No significant abnormality. Unenlarged. Pancreas: No significant abnormality. Adrenals: No significant abnormality. Kidneys: No significant abnormality. Lymphatics: No lymphadenopathy. Vasculature: No significant abnormality. Bowel/Peritoneum: No significant abnormality. No free air. No free fluid. Normal appendix. CT PELVIC: : Small amount of free fluid in the pelvis. Lymphatics: No lymphadenopathy. Osseous Structures: No aggressive appearing osseous lesions. Additional Findings: None IMPRESSION: 1. No acute findings. 2. Small amount of free fluid in the pelvis. 3. Moderate hiatal hernia. Signer Name: Rubin Hernandez MD Signed: 09/29/2021 11:58 PM Workstation Name: [id number]
[2021-09-30 00:57] LABS: Bilirubin,Urine NEG (Negative); Blood,Urine NEG (Negative); Color,Urine Yellow (Yellow); Mucus,Urine 1+ /HPF; Protein,Urine <15 mg/dL mg/dL (Negative); Urobilinogen,Urine < 2.0 mg/dL (<2.0)
--- NOTE | 2021-09-30 01:09 | Emergency Department Report ---
ED Abdominal Pain HPI - General Chief Complaint: Abdominal Pain Stated Complaint: STOMACH PAIN Source: patient Mode of arrival: Ambulatory Limitations: No Limitations - History of Present Illness Initial Comments: Patient is a 36-year-old female with no past medical history presents to the ED with complaint of acute onset persistent diffuse low abdominal pain with nausea and vomiting for the last 3 days. Patient states that the pain has been persistent, and constant and she describes it as crampy sharp pain. Patient denies diarrhea, dysuria, urinary frequency and urgency, chest pain or shortness of breath, sore throat, headache, lightheadedness, low back pain, vaginal bleeding, vaginal discharge or dyspareunia. MD Complaint: abdominal pain, other (Nausea and vomiting) -: Sudden, days(s) (3) Location: LLQ, RLQ, suprapubic Radiation: LLQ, RLQ, suprapubic Migration to: no migration Severity scale (0 -10): 6 Quality: cramping, sharp Consistency: constant Improves With: nothing Worsens With: nothing Associated Symptoms: denies other symptoms, nausea, vomiting, anorexia. denies: diarrhea, fever, constipation, dysuria, hematemesis, hematochezia, melena, hematuria, syncope - Related Data LMP Date: 09/29/21 Previous Rx's Medication Instructions Recorded Last Taken Type Ciprofloxacin HCl 500 mg PO BID #14 tablet 09/14/20 Unknown Rx oxyCODONE /ACETAMINOPHEN [Percocet 1 tab PO Q6HR PRN #24 tablet 09/14/20 Unknown Rx 5/325] DOXYCYCLINE Hyclate [Vibramycin 100 mg PO Q12HR #14 capsule 11/08/20 Unknown Rx CAP] Fluconazole [Diflucan TAB] 200 mg PO QDAY #1 tablet 11/08/20 Unknown Rx Nystatin Cream [Mycostatin Cream] 1 applic TP TID #30 tube 11/08/20 Unknown Rx metroNIDAZOLE [Flagyl] 500 mg PO Q12HR #14 tab 11/08/20 Unknown Rx Doxycycline Hyclate 100 mg PO Q12H #20 cap 09/30/21 Unknown Rx Ibuprofen [Motrin] 800 mg PO Q8HR PRN #30 tablet 09/30/21 Unknown Rx Ondansetron [Zofran Odt] 4 mg PO Q6HR PRN #15 tab.rapdis 09/30/21 Unknown Rx Allergies Allergy/AdvReac Type Severity Reaction Status Date / Time cephalexin monohydrate AdvReac Intermediate Hives Verified 11/08/20 09:33 [From Keflex] ED Review of Systems ROS: Stated complaint: STOMACH PAIN Other details as noted in HPI Constitutional: denies: chills, fever Eyes: denies: eye pain, eye discharge, vision change ENT: denies: ear pain, throat pain Respiratory: denies: cough, shortness of breath, wheezing Cardiovascular: denies: chest pain, palpitations Endocrine: no symptoms reported Gastrointestinal: abdominal pain (Diffuse low abdominal pain), nausea, vomiting. denies: diarrhea Genitourinary: denies: urgency, dysuria, discharge Musculoskeletal: denies: back pain, joint swelling, arthralgia Skin: denies: rash, lesions Neurological: denies: headache, weakness, paresthesias Psychiatric: denies: anxiety, depression Hematological/Lymphatic: denies: easy bleeding, easy bruising ED Past Medical Hx - Past Medical History Hx Hypertension: No Hx Heart Attack/AMI: No Hx Diabetes: No Hx Deep Vein Thrombosis: No Hx Liver Disease: No Hx Renal Disease: No Hx Sickle Cell Disease: No Hx Seizures: No Hx Asthma: No Hx HIV: No Additional medical history: abd pain - Surgical History Additional Surgical History: 2013, 2012, 2007 - Social History Smoking Status: Current Every Day Smoker Substance Use Type: None - Medications Home Medications: Home Medications Medication Instructions Recorded Confirmed Last Taken Type Ciprofloxacin HCl 500 mg PO BID #14 tablet 09/14/20 Unknown Rx oxyCODONE /ACETAMINOPHEN [Percocet 1 tab PO Q6HR PRN #24 tablet 09/14/20 Unknown Rx 5/325] DOXYCYCLINE Hyclate [Vibramycin 100 mg PO Q12HR #14 capsule 11/08/20 Unknown Rx CAP] Fluconazole [Diflucan TAB] 200 mg PO QDAY #1 tablet 11/08/20 Unknown Rx Nystatin Cream [Mycostatin Cream] 1 applic TP TID #30 tube 11/08/20 Unknown Rx metroNIDAZOLE [Flagyl] 500 mg PO Q12HR #14 tab 11/08/20 Unknown Rx Doxycycline Hyclate 100 mg PO Q12H #20 cap 09/30/21 Unknown Rx Ibuprofen [Motrin] 800 mg PO Q8HR PRN #30 tablet 09/30/21 Unknown Rx Ondansetron [Zofran Odt] 4 mg PO Q6HR PRN #15 tab.rapdis 09/30/21 Unknown Rx ED Physical Exam - General Limitations: No Limitations General appearance: alert, in no apparent distress - Head Head exam: Present: atraumatic, normocephalic, normal inspection - Eye Eye exam: Present: normal appearance, PERRL, EOMI Pupils: Present: normal accommodation - ENT ENT exam: Present: normal exam, normal orophraynx, mucous membranes moist, TM's normal bilaterally, normal external ear exam - Neck Neck exam: Present: normal inspection, full ROM. Absent: tenderness - Respiratory Respiratory exam: Present: normal lung sounds bilaterally. Absent: respiratory distress, wheezes, rales, rhonchi, stridor, chest wall tenderness, decreased breath sounds - Cardiovascular Cardiovascular Exam: Present: regular rate, normal rhythm, normal heart sounds. Absent: systolic murmur, diastolic murmur, rubs, gallop - GI/Abdominal GI/Abdominal exam: Present: soft, tenderness (Palpable diffuse abdominal tenderness), normal bowel sounds. Absent: guarding, rebound, hyperactive bowel sounds, hypoactive bowel sounds - Bi-manual exam: Present: other (Pelvic exam deferred at this time) - Extremities Exam Extremities exam: Present: normal inspection, full ROM, normal capillary refill. Absent: tenderness - Back Exam Back exam: Present: normal inspection, full ROM. Absent: tenderness, CVA tenderness (R), muscle spasm, paraspinal tenderness, vertebral tenderness - Neurological Exam Neurological exam: Present: alert, oriented X3, CN II-XII intact, normal gait, reflexes normal - Psychiatric Psychiatric exam: Present: normal affect, normal mood - Skin Skin exam: Present: warm, dry, intact, normal color. Absent: rash ED Course Vital Signs 09/29/21 16:51 Temperature 99.4 F Pulse Rate 84 Respiratory 20 Rate Blood Pressure 108/66 O2 Sat by Pulse 97 Oximetry ED Medical Decision Making - Lab Data Result diagrams: 09/29/21 22:41 09/29/21 22:41 - Radiology Data Radiology results: report reviewed, image reviewed [facility] [address] [place] [address] Cat Scan Report Signed Patient: LU VITALE MR#: [id number] : 1985 Acct:[id number] Age/Sex: 36 / F ADM Date: 09/29/21 Loc: ED Attending Dr: Ordering Physician: EDUARDO WALKER Date of Service: 09/29/21 Procedure(s): CT abdomen pelvis w con Accession Number(s): [id number] cc: EDUARDO WALKER CT ABDOMEN AND PELVIS WITH CONTRAST HISTORY: LOWER ABDOMINAL PAIN COMPARISON: Prior CT on 08/25/2019 TECHNIQUE: Routine abdominal and pelvic CT exam performed following intravenous contrast administration. Portable. All CT scans at this location are performed using CT dose reduction for ALARA by means of automated exposure control. FINDINGS: CT ABDOMEN: Lung Bases: Lung bases are clear. There is a moderate hiatal hernia. Liver: No significant abnormality. Biliary: Gallbladder is surgically absent. Spleen: No significant abnormality. Unenlarged. Pancreas: No significant abnormality. Adrenals: No significant abnormality. Kidneys: No significant abnormality. Lymphatics: No lymphadenopathy. Vasculature: No significant abnormality. Bowel/Peritoneum: No significant abnormality. No free air. No free fluid. Normal appendix. CT PELVIC: : Small amount of free fluid in the pelvis. Lymphatics: No lymphadenopathy. Osseous Structures: No aggressive appearing osseous lesions. Additional Findings: None IMPRESSION: 1. No acute findings. 2. Small amount of free fluid in the pelvis. 3. Moderate hiatal hernia. Signer Name: Rubin Hernandez MD Signed: 09/29/2021 11:58 PM Workstation Name: [id number] Transcribed By: EDWIN Dictated By: Rubin Hernandez MD Electronically Authenticated By: Rubin Hernandez MD Signed Date/Time: 09/29/212357 DD/ 55 TD/TT: - Medical Decision Making This is a 36-year-old female with no past medical history presents to the ED with complaint of acute onset persistent diffuse low abdominal pain with nausea and vomiting for the last 3 days. Patient states that the pain has been persistent, and constant and she describes it as crampy sharp pain. In the ED, patient is alert and oriented x3 and is not in any distress. Patient was treated for pain in the ED and also given antiemetics. Lab test results were reviewed and are all nonactionable except for mild urinary tract infection and acute leukocytosis of 17,100. Abdomen pelvis CT scan with contrast showed no acute abnormalities. Incidentally there was also Small amount of free fluid in the pelvis, and Moderate hiatal hernia. On reevaluation by patient pain is well controlled medication. Patient will discharge home on medications and advised to follow-up with her primary care physician in 7 to 10 days for reevaluation. Patient advised return to the ED immediately if symptoms get worse - Differential Diagnosis Appendicitis; UTI; ovarian cyst; kidney stone; colitis; diverticulitis; Critical care attestation.: If time is entered above; I have spent that time in minutes in the direct care of this critically ill patient, excluding procedure time. ED Disposition Clinical Impression: Abdominal pain in female patient, Acute urinary tract infection Disposition: HOME / SELF CARE / HOMELESS Is pt being admited?: No Does the pt Need Aspirin: No Condition: Stable Instructions: Abdominal Pain (ED), Urinary Tract Infection, Adult, [id number], Abdominal Pain, Adult, [id number] Additional Instructions: All lab test results were reviewed and are all nonactionable except for leukocytosis of 17,100 and acute urinary tract infection in urinalysis. The abdomen pelvis CT scan with contrast showed no acute abnormalities. Therefore take medications as advised, drink plenty of fluids, follow-up with your primary care physician in 7 to 10 days for reevaluation or return to the ED immediately if symptoms get worse. Prescriptions: Doxycycline Hyclate 100 mg PO Q12H #20 cap Ibuprofen [Motrin] 800 mg PO Q8HR PRN #30 tablet PRN Reason: Pain , Severe (7-10) Ondansetron [Zofran Odt] 4 mg PO Q6HR PRN #15 tab.rapdis PRN Reason: Nausea Referrals: [facility] [Provider Group] - 7-10 days Time of Disposition: 01:11 Print Language: GEORGIAN
[2021-09-30 01:58] VITALS: BP 112/71
== END 2021-09-30 01:58 | disposition home or self-care (01) ==
LOC: ED 15:53
DX: N39.0 Urinary tract infection, site not specified (principal); R10.31 Right lower quadrant pain; R10.32 Left lower quadrant pain; F17.200 Nicotine dependence, unspecified, uncomplicated; Z79.899 Other long term (current) drug therapy; Z88.1 Allergy status to other antibiotic agents
CPT/HCPCS: 36415; 74177; 80053; 81001; 83690; 84703; 85025; 87086; 96361; 96374; 96375; 99284; J2270; J2405; J7030; Q9967; Q0162